=== PATIENT | female | born 1950 | race Caucasian/White ===

== ENCOUNTER 2016-08-25 07:08 | Emergency (ER) | payer MEDICARE ==
--- NOTE | 2016-08-25 08:00 | XRay Report ---
CHEST TWO VIEWS: 08/25/16 07:08:00 CLINICAL: Shortness of breath. COMPARISON: 07/22/14 FINDINGS: Normal heart and pulmonary vasculature. The lungs are hyperexpanded but clear. No tubes or lines. The bones and soft tissues are normal. IMPRESSION: COPD.No CHF or pneumonia.
[2016-08-25 08:08] LABS: Anion Gap 17 mmol/L; BUN/Creatinine Ratio 16.66; Blood Urea Nitrogen 15 mg/dL (7-17); Calcium 8.3 mg/dL (8.4-10.2); Carbon Dioxide 27 mmol/L (22-30); Chloride 97.8 mmol/L (98-107); Glucose 139 mg/dL (65-100); Potassium 3.8 mmol/L (3.6-5.0); Sodium 138 mmol/L (137-145)
[2016-08-25 08:13] LABS: Basophils % (Auto) 0.2 % (0.0-1.8); Eosinophils % (Auto) 0.2 % (0.0-4.3); Hematocrit 36.2 % (30.3-42.9); Hemoglobin 11.5 gm/dl (10.1-14.3); Mean Corpuscular HGB Conc 32 % (30-34); Mean Corpuscular Hemoglobin 27 pg (28-32); Mean Corpuscular Volume 84 fl (79-97); Platelet Count 156 K/mm3 (140-440); Red Blood Count 4.32 M/mm3 (3.65-5.03); Red Cell Distribution Width 13.4 % (13.2-15.2); White Blood Count 12.6 K/mm3 (4.5-11.0)
[2016-08-25] MEDS ORDERED: MOTRIN PO ONE (10:02)
[2016-08-25] MEDS ORDERED: TESSALON PERLES PO ONE (10:02)
[2016-08-25] MEDS ORDERED: LIDOCAINE VISCOUS 2% PO ONE (10:02)
[2016-08-25] MEDS ORDERED: DUONEB 0.5 MG-3 MG/3 ML SOLN IH ONE (10:02)
[2016-08-25] MEDS ORDERED: ZITHROMAX PO ONE (10:02)
[2016-08-25] MEDS ORDERED: MAGNESIUM SULFATE 2GM/50ML 2 GM/50 ML BAG IV ONE (12:02)
[2016-08-25] MEDS ORDERED: NACL 0.9% 1000 ML 1,000 ML IV ONE (12:02)
--- NOTE | 2016-08-25 12:10 | Emergency Department Report ---
HPI - General Chief Complaint: Dyspnea/Respdistress Time Seen by Provider: 08/25/16 10:01 - HPI HPI: The patient is a 65-year-old female who presents for evaluation of cough and dyspnea. The patient has a history of COPD. The patient reports 1 week of worsening dyspnea and a productive cough of yellow sputum. She states that her dyspnea has been constant for the past 3 days, severe for the past one day, exacerbated with coughing or attempting exertion, improved with sitting up. The patient denies fever, chest pain, syncope, hemoptysis, unilateral leg swelling, recent immobilization, history of DVT or PE, recent cancer. ED Past Medical Hx - Past Medical History Previous Medical History?: Yes Hx Hypertension: Yes Hx CVA: Yes Hx COPD: Yes - Surgical History Past Surgical History?: Yes Additional Surgical History: BRAIN ANEURYSM REPAIR - Social History Smoking Status: Never Smoker Substance Use Type: None - Medications Home Medications: Home Medications Medication Instructions Recorded Confirmed Last Taken Type Benzotrophen 25 mg PO BID 03/15/16 08/25/16 Unknown History Hydrochlorothiazide [HCTZ] 25 mg PO QDAY 03/15/16 08/25/16 Unknown History Lisinopril [Zestril] 40 mg PO DAILY 03/15/16 08/25/16 Unknown History Loxapine (Nf) [Loxitane Cap (Nf)] 25 mg PO DAILY 03/15/16 08/25/16 Unknown History ALBUTEROL Inhaler [ProAir HFA 2 puff IH QID PRN #1 inhalation 08/25/16 Unknown Rx Inhaler] Amoxicillin 500 mg PO BID 08/25/16 08/25/16 Unknown History Azithromycin [Zithromax Z-GENOVEVA] 250 mg PO QDAY #6 tablet 08/25/16 Unknown Rx Diclofenac Sodium 75 mg PO BID 08/25/16 08/25/16 Unknown History Pravastatin Sodium [Pravastatin] 20 mg PO QHS 08/25/16 08/25/16 Unknown History Prednisone [predniSONE 10 mg 10 mg PO .TAPER #1 tab.ds.pk 08/25/16 Unknown Rx (6-Day Pack, 21 Tabs)] Promethazine /Codeine 5 ml PO Q6H PRN #120 ml 08/25/16 Unknown Rx [Phenergan/Codeine 6.25-10 mg/5Ml] Rasagiline Mesylate [Azilect] 1 mg PO QDAY 08/25/16 08/25/16 Unknown History amLODIPine [Norvasc] 10 mg PO DAILY 08/25/16 08/25/16 Unknown History ED Review of Systems ROS: Stated complaint: SHORTNESS OF BREATH Other details as noted in HPI Constitutional: denies: fever ENT: denies: throat or neck pain Respiratory: reports cough, shortness of breath Cardiovascular: denies: chest pain Endocrine: denies unexplained weight loss or gain Gastrointestinal: denies: abdominal pain, nausea Genitourinary: denies: dysuria Musculoskeletal: denies: leg swelling Skin: denies: rash Neurological: denies: headache Hematological/Lymphatic: denies: easy bleeding or easy bruising Psych: denies sadness or hopelessness Physical Exam - Physical Exam Vital Signs: Vital Signs 08/25/16 08/25/16 08/25/16 07:15 08:44 09:20 Temperature 98.7 F 98.4 F 98.6 F Pulse Rate 114 H 102 H 103 H Pulse Rate [ Right Lower Lobe] Respiratory 20 20 20 Rate Respiratory Rate [Right Lower Lobe] Blood Pressure 110/69 Blood Pressure 119/49 119/61 [Left] O2 Sat by Pulse 91 94 98 Oximetry 08/25/16 08/25/16 10:18 11:01 Temperature Pulse Rate 100 H Pulse Rate [ 78 Right Lower Lobe] Respiratory 20 Rate Respiratory 18 Rate [Right Lower Lobe] Blood Pressure Blood Pressure 126/61 [Left] O2 Sat by Pulse 98 Oximetry Physical Exam: General: well-nourished, well-developed, no acute distress Head: Normocephalic, atraumatic Eyes: normal sclera ENT: Mucous membranes are pink and moist, bilateral nasal congestion present Neck: trachea midline, neck supple, No neck stiffness, no cervical adenopathy Respiratory: Mildly diminished breath sounds and wheezing present throughout lungs , no costal retractions, no respiratory distress bilaterally Cardio: S1 and S2 present, no murmurs, rubs, gallops, capillary refill is brisk Abdomen: Normoactive bowel sounds, soft abdomen, no rigidity, no guarding or rebound tenderness Chest WALL/Back: Positive tenderness to palpation of the chest wall, no CVA tenderness with percussion Musc: No pitting edema Skin: No rash Neuro: no facial drooping, normal speech Psych: Normal affect ED Course Vital Signs 08/25/16 08/25/16 08/25/16 07:15 08:44 09:20 Temperature 98.7 F 98.4 F 98.6 F Pulse Rate 114 H 102 H 103 H Pulse Rate [ Right Lower Lobe] Respiratory 20 20 20 Rate Respiratory Rate [Right Lower Lobe] Blood Pressure 110/69 Blood Pressure 119/49 119/61 [Left] O2 Sat by Pulse 91 94 98 Oximetry 08/25/16 08/25/16 10:18 11:01 Temperature Pulse Rate 100 H Pulse Rate [ 78 Right Lower Lobe] Respiratory 20 Rate Respiratory 18 Rate [Right Lower Lobe] Blood Pressure Blood Pressure 126/61 [Left] O2 Sat by Pulse 98 Oximetry ED Medical Decision Making - Lab Data Result diagrams: 08/25/16 07:39 08/25/16 07:39 - Medical Decision Making The patient was seen and examined by myself. 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 On initial evaluation, the patient was found to be in no distress. Evaluation orders were placed. The patient is given a breathing treatment, IV magnesium, and IV solumedrol for txt of COPD. the patient is given Tessalon Perles for cough, viscous lidocaine and Motrin for her pain, 1 L normal saline fluid bolus for treatment of dehydration, and a tablet of azithromycin. Chest x-ray negative for focal consolidation, pleural effusions, pulmonary congestion, pneumothorax, or other acute cardio pulmonary disease process. Lab results revealed mildly elevated CBC of 12, and are grossly not concerning. The patient was reevaluated and reported that their symptoms were markedly improved. The patient is stable for discharge with outpatient follow-up. The patient is given follow-up and return instructions. The patient expressed understanding and agreed with the plan. The patient is given a prescription for prednisone. The patient is discharged in stable condition. Critical care attestation.: If time is entered above; I have spent that time in minutes in the direct care of this critically ill patient, excluding procedure time. ED Disposition Clinical Impression: Acute exacerbation of chronic obstructive pulmonary disease, Upper respiratory infection, acute, Acute viral syndrome Disposition: DISCHARGED TO HOME OR SELFCARE Is pt being admited?: No Does the pt Need Aspirin: No Condition: Stable Instructions: Chronic Obstructive Pulmonary Disease (ED), Upper Respiratory Infection (ED) Referrals: BETSEY PARKER MD [Primary Care Provider] - 3-5 Days Time of Disposition: 12:05
[2016-08-25 14:10] VITALS: BP 156/69
== END 2016-08-25 14:10 | disposition home or self-care (01) ==
LOC: ED 07:08
DX: J44.1 Chronic obstructive pulmonary disease with (acute) exacerbation (principal); J06.9 Acute upper respiratory infection, unspecified; B34.9 Viral infection, unspecified; I10 Essential (primary) hypertension; I63.9 Cerebral infarction, unspecified
CPT/HCPCS: 36415; 71020; 80048; 84484; 85025; 93005; 93010; 94640; 96365; 96375; 99285; J2930; J3475; J7030

== ENCOUNTER 2018-09-22 10:04 | Inpatient (IN) | payer MEDICARE ==
[2018-09-22] MEDS ORDERED: SOLU-Medrol IV ONE (10:42)
[2018-09-22] MEDS ORDERED: MAXIPIME/NS 1 GM/100 ML 1 GM/100 ML BAG IV ONE (10:42)
[2018-09-22] MEDS ORDERED: DUONEB *Not for PRN Use IH ONE (10:44)
--- NOTE | 2018-09-22 10:45 | Emergency Department Report ---
ED Shortness of Breath HPI - General Chief Complaint: Dyspnea/Respdistress Stated Complaint: DIFFICULTY BREATHING Time Seen by Provider: 09/22/18 10:41 Source: EMS Mode of arrival: Stretcher Limitations: No Limitations - History of Present Illness Initial Comments: Patient is a 68-year-old female that presents emergency room with complaints of difficulty breathing and shortness of breath and chest pain. Patient states the chest pain is substernal and nonradiating. Patient states the pain is a 4 out of 10. Patient states the pain is intermittent. Patient states the pain is worse with exertion and better with rest. Patient states shortness breath is better with rest and worse with exertion. Patient states she has a history of COPD and has home O2 as well as multiple nebulizers. Symptoms going on for 3 days. Patient's symptoms are worsening. MD Complaint: shortness of breath, cough, chest pain -: Sudden Severity: mild, moderate Pain Scale: 4 Quality: aching Consistency: constant Improves With: oxygen, rest, bronchodilators, upright position, medication Worsens With: lying flat, exertion, coughing Known History Of: COPD Context: recent URI Associated Symptoms: chest pain, cough, sputum production, orhopnia Treatments Prior to Arrival: oxygen, bronchodilator - Related Data Home Oxygen Therapy: Yes Home Oxygen Amount: 2 Liters Home Medications Medication Instructions Recorded Confirmed Last Taken Benzotrophen 25 mg PO BID 03/15/16 08/25/16 Unknown Lisinopril [Zestril] 40 mg PO DAILY 03/15/16 09/22/18 1 Day Ago ~09/21/18 Loxapine (Nf) [Loxitane Cap (Nf)] 25 mg PO DAILY 03/15/16 08/25/16 Unknown hydroCHLOROthiazide [HCTZ] 25 mg PO QDAY 03/15/16 09/22/18 1 Day Ago ~09/21/18 Amoxicillin 500 mg PO BID 08/25/16 08/25/16 Unknown Diclofenac Sodium 75 mg PO BID 08/25/16 08/25/16 Unknown Pravastatin Sodium [Pravastatin] 20 mg PO QHS 08/25/16 09/22/18 1 Day Ago ~09/21/18 Rasagiline Mesylate [Azilect] 1 mg PO QDAY 08/25/16 08/25/16 Unknown amLODIPine [Norvasc] 10 mg PO DAILY 08/25/16 09/22/18 1 Day Ago ~09/21/18 Rasagiline Mesylate [Azilect] 1 mg PO QDAY 09/22/18 09/22/18 1 Day Ago ~09/21/18 traZODone [Desyrel] 09/22/18 1 Day Ago ~09/21/18 traZODone [Desyrel] 09/22/18 1 Day Ago ~09/21/18 100 Previous Rx's Medication Instructions Recorded Last Taken Type ALBUTEROL Inhaler (OR & NICU) 2 puff IH QID PRN #1 inhalation 08/25/16 Unknown Rx [ProAir HFA Inhaler] Azithromycin [Zithromax Z-GENOVEVA] 250 mg PO QDAY #6 tablet 08/25/16 Unknown Rx Prednisone [predniSONE 10 mg 10 mg PO .TAPER #1 tab.ds.pk 08/25/16 Unknown Rx (6-Day Pack, 21 Tabs)] Promethazine /Codeine 5 ml PO Q6H PRN #120 ml 08/25/16 Unknown Rx [Phenergan/Codeine 6.25-10 mg/5Ml] Allergies Allergy/AdvReac Type Severity Reaction Status Date / Time No Known Allergies Allergy Verified 03/15/16 11:27 ED Review of Systems ROS: Stated complaint: DIFFICULTY BREATHING Other details as noted in HPI Constitutional: denies: chills, fever Eyes: denies: eye pain, eye discharge, vision change ENT: denies: ear pain, throat pain Respiratory: cough, shortness of breath, SOB with exertion, SOB at rest, wheezing Cardiovascular: chest pain. denies: palpitations Endocrine: no symptoms reported Gastrointestinal: denies: abdominal pain, nausea, diarrhea Genitourinary: denies: urgency, dysuria, discharge Musculoskeletal: denies: back pain, joint swelling, arthralgia Skin: denies: rash, lesions Neurological: denies: headache, weakness, paresthesias Psychiatric: denies: anxiety, depression Hematological/Lymphatic: denies: easy bleeding, easy bruising ED Past Medical Hx - Past Medical History Previous Medical History?: Yes Hx Hypertension: Yes Hx CVA: Yes Hx COPD: Yes - Surgical History Past Surgical History?: Yes Additional Surgical History: BRAIN ANEURYSM REPAIR - Family History Family history: no significant - Social History Smoking Status: Former Smoker Substance Use Type: None - Medications Home Medications: Home Medications Medication Instructions Recorded Confirmed Last Taken Type Benzotrophen 25 mg PO BID 03/15/16 08/25/16 Unknown History Lisinopril [Zestril] 40 mg PO DAILY 03/15/16 09/22/18 1 Day Ago History ~09/21/18 Loxapine (Nf) [Loxitane Cap (Nf)] 25 mg PO DAILY 03/15/16 08/25/16 Unknown History hydroCHLOROthiazide [HCTZ] 25 mg PO QDAY 03/15/16 09/22/18 1 Day Ago History ~09/21/18 ALBUTEROL Inhaler (OR & NICU) 2 puff IH QID PRN #1 inhalation 08/25/16 Unknown Rx [ProAir HFA Inhaler] Amoxicillin 500 mg PO BID 08/25/16 08/25/16 Unknown History Azithromycin [Zithromax Z-GENOVEVA] 250 mg PO QDAY #6 tablet 08/25/16 Unknown Rx Diclofenac Sodium 75 mg PO BID 08/25/16 08/25/16 Unknown History Pravastatin Sodium [Pravastatin] 20 mg PO QHS 08/25/16 09/22/18 1 Day Ago History ~09/21/18 Prednisone [predniSONE 10 mg 10 mg PO .TAPER #1 tab.ds.pk 08/25/16 Unknown Rx (6-Day Pack, 21 Tabs)] Promethazine /Codeine 5 ml PO Q6H PRN #120 ml 08/25/16 Unknown Rx [Phenergan/Codeine 6.25-10 mg/5Ml] Rasagiline Mesylate [Azilect] 1 mg PO QDAY 08/25/16 08/25/16 Unknown History amLODIPine [Norvasc] 10 mg PO DAILY 08/25/16 09/22/18 1 Day Ago History ~09/21/18 Rasagiline Mesylate [Azilect] 1 mg PO QDAY 09/22/18 09/22/18 1 Day Ago History ~09/21/18 traZODone [Desyrel] 09/22/18 1 Day Ago History ~09/21/18 traZODone [Desyrel] 09/22/18 1 Day Ago History ~09/21/18 100 ED Physical Exam - General Limitations: No Limitations ( ) General appearance: alert, in no apparent distress - Head Head exam: Present: atraumatic, normocephalic - Eye Eye exam: Present: normal appearance - ENT ENT exam: Present: mucous membranes dry - Neck Neck exam: Present: normal inspection - Respiratory Respiratory exam: Present: respiratory distress, wheezes, decreased breath sounds, prolonged expiratory - Cardiovascular Cardiovascular Exam: Present: regular rate, normal rhythm. Absent: systolic m urmur, diastolic murmur, rubs, gallop - GI/Abdominal GI/Abdominal exam: Present: soft, normal bowel sounds - Rectal Rectal exam: Present: deferred - Extremities Exam Extremities exam: Present: normal inspection - Back Exam Back exam: Present: normal inspection - Neurological Exam Neurological exam: Present: alert, oriented X3 - Psychiatric Psychiatric exam: Present: normal affect, normal mood - Skin Skin exam: Present: warm, dry, intact, normal color. Absent: rash ED Course Vital Signs 09/22/18 09/22/18 09/22/18 10:22 10:30 10:31 Temperature 98.3 F Pulse Rate 99 H 76 81 Respiratory 30 H 26 H 18 Rate Blood Pressure 101/46 Blood Pressure 103/40 [Left] O2 Sat by Pulse 86 86 Oximetry 09/22/18 09/22/18 09/22/18 10:45 11:01 11:15 Temperature Pulse Rate 82 74 73 Respiratory 20 18 22 Rate Blood Pressure 108/42 103/36 103/36 Blood Pressure [Left] O2 Sat by Pulse 89 86 94 Oximetry 09/22/18 09/22/18 09/22/18 11:30 11:45 12:01 Temperature Pulse Rate 80 70 69 Respiratory 21 22 19 Rate Blood Pressure 106/38 115/40 112/75 Blood Pressure [Left] O2 Sat by Pulse 94 91 85 Oximetry 09/22/18 09/22/18 09/22/18 12:15 12:30 12:45 Temperature Pulse Rate 68 78 86 Respiratory 18 21 24 Rate Blood Pressure 123/40 103/74 103/74 Blood Pressure [Left] O2 Sat by Pulse 91 85 83 L Oximetry 09/22/18 09/22/18 09/22/18 13:00 13:15 13:30 Temperature Pulse Rate Respiratory 22 22 26 H Rate Blood Pressure 126/64 116/74 123/52 Blood Pressure [Left] O2 Sat by Pulse 85 92 95 Oximetry 09/22/18 09/22/18 09/22/18 13:45 14:00 14:15 Temperature Pulse Rate Respiratory 24 11 L 26 H Rate Blood Pressure 123/52 96/76 96/76 Blood Pressure [Left] O2 Sat by Pulse 92 92 96 Oximetry 09/22/18 09/22/18 09/22/18 14:30 14:45 15:00 Temperature Pulse Rate Respiratory 17 14 21 Rate Blood Pressure 163/71 132/51 134/47 Blood Pressure [Left] O2 Sat by Pulse 92 92 97 Oximetry 09/22/18 15:04 Temperature Pulse Rate Respiratory Rate Blood Pressure Blood Pressure [Left] O2 Sat by Pulse 94 Oximetry - Reevaluation(s) Reevaluation #1: Initial evaluation done and patient will be given steroids, antibiotics and a breathing treatment. 09/22/18 11:07 Lungs are clear in this time. Patient will be admitted to the hospitalist service for further evaluation treatment. 09/22/18 12:08 Discussed all results with patient. Patient will be admitted to the hospitalist service. Patient agrees with plan of care and admission. Family at bedside 09/22/18 13:08 - Consultations Consultation #1: hospitalist consulted for admission. Hospitalist to admit patient. Hospitalist to assume care of patient. Bridge orders placed. 09/22/18 13:27 ED Medical Decision Making - Lab Data Result diagrams: 09/22/18 10:50 09/22/18 10:50 - EKG Data -: EKG Interpreted by Dc EKG shows normal: sinus rhythm, axis, intervals, QRS complexes, ST-T waves Rate: normal - Radiology Data Radiology results: report reviewed, image reviewed PORTABLE CHEST INDICATION: Dyspnea. COMPARISON: 08/25/2016 FINDINGS: Portable, frontal chest radiograph demonstrates stable cardiomediastinal silhouette, aortic knob calcifications and clear, well-expanded lungs. EKG leads. Intact bones. CONCLUSION: No acute disease, stable. - Medical Decision Making Patient is a 68-year-old female that has some urgency with complaints of chest pain, shortness of breath. Patient found to have a COPD exacerbation. Patient had sounds on initial evaluation. Patient brought in by EMS. Patient given albuterol, DuoNeb, Solu-Medrol, and antibiotics. Patient was admitted to the hospitalist service for further evaluation treatment. EKG negative. Cardiac enzymes negative. Labs unremarkable. Patient is on home O2. patient initially hypoxic in the ER - Differential Diagnosis hypoxic. Shortness of breath. COPD. Chest pain. ACS Critical Care Time: Yes Critical care attestation.: If time is entered above; I have spent that time in minutes in the direct care of this critically ill patient, excluding procedure time. Critical Care Time: 45 minutes ED Disposition Clinical Impression: SOB (shortness of breath), COPD exacerbation, Hypoxia Chest pain Qualifiers: Chest pain type: unspecified Qualified Code(s): R07.9 - Chest pain, unspecified Disposition: [id number] OP ADMIT IP TO THIS HOSP Is pt being admited?: Yes Does the pt Need Aspirin: No Condition: Critical Time of Disposition: 13:25
--- NOTE | 2018-09-22 11:10 | XRay Report ---
PORTABLE CHEST INDICATION: Dyspnea. COMPARISON: 08/25/2016 FINDINGS: Portable, frontal chest radiograph demonstrates stable cardiomediastinal silhouette, aortic knob calcifications and clear, well-expanded lungs. EKG leads. Intact bones. CONCLUSION: No acute disease, stable. Thank you for the opportunity to participate in this patient's care.
[2018-09-22 11:18] LABS: Basophils % (Auto) 0.4 % (0.0-1.8); Eosinophils % (Auto) 0.6 % (0.0-4.3); Hematocrit 36.4 % (30.3-42.9); Hemoglobin 11.6 gm/dl (10.1-14.3); Lymphocytes # (Auto) 0.9 K/mm3 (1.2-5.4); Mean Corpuscular HGB Conc 32 % (30-34); Mean Corpuscular Volume 90 fl (79-97); Monocytes # (Auto) 0.3 K/mm3 (0.0-0.8); Monocytes % (Auto) 5.3 % (0.0-7.3); Platelet Count 173 K/mm3 (140-440); Red Blood Count 4.06 M/mm3 (3.65-5.03); Red Cell Distribution Width 14.3 % (13.2-15.2)
[2018-09-22 11:27] LABS: Creatine Kinase MB 1.1 ng/mL (0.0-4.0)
[2018-09-22 11:29] LABS: Alanine Aminotransferase 34 units/L (7-56); BUN/Creatinine Ratio 32; Blood Urea Nitrogen 29 mg/dL (7-17); Calcium 9.5 mg/dL (8.4-10.2); Hemolysis Index 5
[2018-09-22] MEDS ORDERED: ASPIRIN PO ONE (13:06)
[2018-09-22] MEDS ORDERED: ASPIRIN ONE (15:14)
[2018-09-22] MEDS ORDERED: IBUPROFEN PO PRN (17:07)
[2018-09-22] MEDS ORDERED: TYLENOL PO PRN (17:07)
[2018-09-22] MEDS ORDERED: DILAUDID IV PRN (17:07)
--- NOTE | 2018-09-22 17:07 | History and Physical Report ---
History of Present Illness Date of examination: 09/22/18 Date of admission: 09/22/18 13:57 Chief complaint: Chest pain and SOB for 3 days History of present illness: 68-year-old martiniquais speaking female presents to the emergency room with complaints of difficulty breathing and shortness of breath and chest pain. Patient states the chest pain is substernal and nonradiating. Patient states the pain is a 4 out of 10. Patient states the pain is intermittent. Patient states the pain is worse with exertion and better with rest. Patient states shortness breath is better with rest and worse with exertion. Patient states she has a history of COPD and has home O2 as well as multiple nebulizers. Cough productive of mucoid sputum.No fever or chills. Symptoms going on for 3 days. Patient's symptoms are worsening. Past Medical History Previous Medical History?: Yes Hx Hypertension: Yes Hx CVA: Yes Hx COPD: Yes Surgical History Past Surgical History?: Yes Additional Surgical History: BRAIN ANEURYSM REPAIR Family History Family history: no significant Social History Smoking Status: Former Smoker Substance Use Type: None Medications Home Medications: Home Medications Medication Instructions Recorded Confirmed Last Taken Type Benzotrophen 25 mg PO BID 03/15/16 08/25/16 Unknown History Lisinopril [Zestril] 40 mg PO DAILY 03/15/16 09/22/18 1 Day Ago History ~09/21/18 Loxapine (Nf) [Loxitane Cap (Nf)] 25 mg PO DAILY 03/15/16 08/25/16 Unknown History hydroCHLOROthiazide [HCTZ] 25 mg PO QDAY 03/15/16 09/22/18 1 Day Ago History ~09/21/18 ALBUTEROL Inhaler (OR & NICU) 2 puff IH QID PRN #1 inhalation 08/25/16 Unknown Rx [ProAir HFA Inhaler] Amoxicillin 500 mg PO BID 08/25/16 08/25/16 Unknown History Azithromycin [Zithromax Z-GENOVEVA] 250 mg PO QDAY #6 tablet 08/25/16 Unknown Rx Diclofenac Sodium 75 mg PO BID 08/25/16 08/25/16 Unknown History Pravastatin Sodium [Pravastatin] 20 mg PO QHS 08/25/16 09/22/18 1 Day Ago History ~09/21/18 Prednisone [predniSONE 10 mg 10 mg PO .TAPER #1 tab.ds.pk 08/25/16 Unknown Rx (6-Day Pack, 21 Tabs)] Promethazine /Codeine 5 ml PO Q6H PRN #120 ml 08/25/16 Unknown Rx [Phenergan/Codeine 6.25-10 mg/5Ml] Rasagiline Mesylate [Azilect] 1 mg PO QDAY 08/25/16 08/25/16 Unknown History amLODIPine [Norvasc] 10 mg PO DAILY 08/25/16 09/22/18 1 Day Ago History ~09/21/18 Rasagiline Mesylate [Azilect] 1 mg PO QDAY 09/22/18 09/22/18 1 Day Ago History ~09/21/18 traZODone [Desyrel] 09/22/18 1 Day Ago History ~09/21/18 traZODone [Desyrel] 09/22/18 1 Day Ago History ~09/21/18 100 Review of Systems ROS: Stated complaint: DIFFICULTY BREATHING Other details as noted in HPI Constitutional: denies: chills, fever Eyes: denies: eye pain, eye discharge, vision change ENT: denies: ear pain, throat pain Respiratory: cough, shortness of breath, SOB with exertion, SOB at rest, wheezing Cardiovascular: chest pain. denies: palpitations Endocrine: no symptoms reported Gastrointestinal: denies: abdominal pain, nausea, diarrhea Genitourinary: denies: urgency, dysuria, discharge Musculoskeletal: denies: back pain, joint swelling, arthralgia Skin: denies: rash, lesions Neurological: denies: headache, weakness, paresthesias Psychiatric: denies: anxiety, depression Hematological/Lymphatic: denies: easy bleeding, easy bruising Medications and Allergies Allergies Allergy/AdvReac Type Severity Reaction Status Date / Time No Known Allergies Allergy Verified 03/15/16 11:27 Home Medications Medication Instructions Recorded Confirmed Last Taken Type Benzotrophen 25 mg PO BID 03/15/16 08/25/16 Unknown History Lisinopril [Zestril] 40 mg PO DAILY 03/15/16 09/22/18 1 Day Ago History ~09/21/18 Loxapine (Nf) [Loxitane Cap (Nf)] 25 mg PO DAILY 03/15/16 08/25/16 Unknown History hydroCHLOROthiazide [HCTZ] 25 mg PO QDAY 03/15/16 09/22/18 1 Day Ago History ~09/21/18 ALBUTEROL Inhaler (OR & NICU) 2 puff IH QID PRN #1 inhalation 08/25/16 Unknown Rx [ProAir HFA Inhaler] Amoxicillin 500 mg PO BID 08/25/16 08/25/16 Unknown History Azithromycin [Zithromax Z-GENOVEVA] 250 mg PO QDAY #6 tablet 08/25/16 Unknown Rx Diclofenac Sodium 75 mg PO BID 08/25/16 08/25/16 Unknown History Pravastatin Sodium [Pravastatin] 20 mg PO QHS 08/25/16 09/22/18 1 Day Ago History ~09/21/18 Prednisone [predniSONE 10 mg 10 mg PO .TAPER #1 tab.ds.pk 08/25/16 Unknown Rx (6-Day Pack, 21 Tabs)] Promethazine /Codeine 5 ml PO Q6H PRN #120 ml 08/25/16 Unknown Rx [Phenergan/Codeine 6.25-10 mg/5Ml] Rasagiline Mesylate [Azilect] 1 mg PO QDAY 08/25/16 08/25/16 Unknown History amLODIPine [Norvasc] 10 mg PO DAILY 08/25/16 09/22/18 1 Day Ago History ~09/21/18 Rasagiline Mesylate [Azilect] 1 mg PO QDAY 09/22/18 09/22/18 1 Day Ago History ~09/21/18 traZODone [Desyrel] 09/22/18 1 Day Ago History ~09/21/18 traZODone [Desyrel] 09/22/18 1 Day Ago History ~09/21/18 100 Active Meds: Active Medications Pneumococcal Polyvalent Vaccine (Pneumovax 23) 0.5 ml IM .ONCE ONE Stop: 09/23/18 12:01 Exam - Constitutional Vitals: Temp Pulse Resp BP Pulse Ox 98.3 F 86 21 134/47 94 09/22/18 10:31 09/22/18 12:45 09/22/18 15:00 09/22/18 15:00 09/22/18 15:04 General appearance: Present: mild distress, well-nourished - EENT Eyes: Present: PERRL ENT: hearing intact, clear oral mucosa - Neck Neck: Present: supple, normal ROM - Respiratory Respiratory effort: normal Respiratory: bilateral: diminished, rhonchi, wheezing - Cardiovascular Heart rate: 78 Rhythm: regular Heart Sounds: Present: S1 & S2. Absent: rub, click - Extremities Extremities: no ischemia, pulses intact, pulses symmetrical, No edema Peripheral Pulses: within normal limits - Abdominal General gastrointestinal: Present: soft, non-tender, non-distended, normal bowel sounds Female genitourinary: Present: normal - Rectal Rectal Exam: deferred - Integumentary Integumentary: Present: clear, warm, dry - Musculoskeletal Musculoskeletal: gait normal, strength equal bilaterally - Psychiatric Psychiatric: appropriate mood/affect, intact judgment & insight - Neurologic Neurologic: CNII-XII intact, moves all extremities - Allied Health Allied health notes reviewed: nursing, case management Results - Labs CBC & Chem 7: 09/22/18 10:50 09/22/18 10:50 Labs: Laboratory Last Values WBC 6.6 K/mm3 (4.5-11.0) 09/22/18 10:50 RBC 4.06 M/mm3 (3.65-5.03) 09/22/18 10:50 Hgb 11.6 gm/dl (10.1-14.3) 09/22/18 10:50 Hct 36.4 % (30.3-42.9) 09/22/18 10:50 MCV 90 fl (79-97) 09/22/18 10:50 MCH 29 pg (28-32) 09/22/18 10:50 MCHC 32 % (30-34) 09/22/18 10:50 RDW 14.3 % (13.2-15.2) 09/22/18 10:50 Plt Count 173 K/mm3 (140-440) 09/22/18 10:50 Lymph % (Auto) 13.0 % (13.4-35.0) L 09/22/18 10:50 [place] % (Auto) 5.3 % (0.0-7.3) 09/22/18 10:50 Eos % (Auto) 0.6 % (0.0-4.3) 09/22/18 10:50 Baso % (Auto) 0.4 % (0.0-1.8) 09/22/18 10:50 Lymph # 0.9 K/mm3 (1.2-5.4) L 09/22/18 10:50 [place] # 0.3 K/mm3 (0.0-0.8) 09/22/18 10:50 Eos # 0.0 K/mm3 (0.0-0.4) 09/22/18 10:50 Baso # 0.0 K/mm3 (0.0-0.1) 09/22/18 10:50 Seg Neutrophils % 80.7 % (40.0-70.0) H 09/22/18 10:50 Seg Neutrophils # 5.3 K/mm3 (1.8-7.7) 09/22/18 10:50 Sodium 143 mmol/L (137-145) 09/22/18 10:50 Potassium 4.2 mmol/L (3.6-5.0) 09/22/18 10:50 Chloride 98.1 mmol/L (98-107) 09/22/18 10:50 Carbon Dioxide 35 mmol/L (22-30) H 09/22/18 10:50 Anion Gap 14 mmol/L 09/22/18 10:50 BUN 29 mg/dL (7-17) H 09/22/18 10:50 Creatinine 0.9 mg/dL (0.7-1.2) 09/22/18 10:50 Estimated GFR > 60 ml/min 09/22/18 10:50 BUN/Creatinine Ratio 32 % 09/22/18 10:50 Glucose 111 mg/dL (65-100) H 09/22/18 10:50 Lactic Acid 1.40 mmol/L (0.7-2.0) 09/22/18 10:50 Calcium 9.5 mg/dL (8.4-10.2) 09/22/18 10:50 Total Bilirubin < 0.20 mg/dL (0.1-1.2) 09/22/18 10:50 AST 29 units/L (5-40) 09/22/18 10:50 ALT 34 units/L (7-56) 09/22/18 10:50 Alkaline Phosphatase 69 units/L (35-129) 09/22/18 10:50 Total Creatine Kinase 28 units/L (30-135) L 09/22/18 10:50 CK-MB (CK-2) 1.1 ng/mL (0.0-4.0) 09/22/18 10:50 CK-MB (CK-2) Rel Index 3.9 (0-4) 09/22/18 10:50 Troponin T < 0.010 ng/mL (0.00-0.029) 09/22/18 10:50 Total Protein 6.9 g/dL (6.3-8.2) 09/22/18 10:50 Albumin 4.0 g/dL (3.9-5) 09/22/18 10:50 Albumin/Globulin Ratio 1.4 % 09/22/18 10:50 - Imaging and Cardiology EKG: report reviewed (Incomplete RBBB LVH HR 72/min) Chest x-ray: report reviewed (NAF) Assessment and Plan Advance Directives: Yes (Full code) VTE prophylaxis?: Chemical Plan of care discussed with patient/family: Yes - Patient Problems (1) Acute respiratory failure with hypoxia Current Visit: Yes Status: Acute Plan to address problem: Neb Tx,IV solumedrol and IV Abx and O2 Bipap if necessary Intubation if neccessary (2) Chest pain Current Visit: Yes Status: Acute Qualifiers: Chest pain type: unspecified Qualified Code(s): R07.9 - Chest pain, unspecified Plan to address problem: Chest pain r/o PR Lexiscan in am Serial troponins (3) COPD exacerbation Current Visit: Yes Status: Acute Plan to address problem: Duonebs IV Solumedrol and IV Levaquin for now Bipap if necessary (4) HTN (hypertension) Current Visit: Yes Status: Chronic Qualifiers: Hypertension type: essential hypertension Qualified Code(s): I10 - Essential (primary) hypertension Plan to address problem: Cont antihypertensives (5) HLD (hyperlipidemia) Current Visit: Yes Status: Chronic Qualifiers: Hyperlipidemia type: mixed hyperlipidemia Qualified Code(s): E78.2 - Mixed hyperlipidemia Plan to address problem: Cont Statins (6) DVT prophylaxis Current Visit: Yes Status: Acute Plan to address problem: Lovenox and GI prophylaxis
[2018-09-22] MEDS ORDERED: PHENERGAN/CODEINE 6.25-10 MG/5ML PO PRN (17:09)
[2018-09-22] MEDS ORDERED: PROAIR IH PRN (17:09)
[2018-09-22] MEDS ORDERED: RASAGILINE MESYLATE 1 MG PO SCH (17:15)
[2018-09-22] MEDS ORDERED: LOXAPINE 25 MG PO SCH (17:15)
[2018-09-22] MEDS ORDERED: NORVASC PO SCH (18:00)
[2018-09-22] MEDS ORDERED: PERCOCET 5/325 PO PRN (18:24)
[2018-09-22] MEDS ORDERED: PROVENTIL IH PRN ×2 (18:28→22:01)
[2018-09-22] MEDS ORDERED: ZOFRAN IV PRN (18:32)
[2018-09-22] MEDS: NACL 0.9% 1000 ML 1,000 ML IV SCH (18:38)
[2018-09-22] MEDS: SODIUM CHLORIDE FLUSH SYRINGE 10 ML IV PRN (18:42)
[2018-09-22] MEDS: PEPCID PO SCH (21:45)
[2018-09-22] MEDS: DESYREL PO SCH (21:45)
[2018-09-22] MEDS: SODIUM CHLORIDE FLUSH SYRINGE 10 ML IV SCH (21:50)
[2018-09-22] MEDS: ZESTRIL PO SCH (21:50)
[2018-09-22] MEDS: NORVASC PO SCH (21:52)
[2018-09-22] MEDS: HCTZ PO SCH (21:52)
[2018-09-22] MEDS ORDERED: SOLU-Medrol IV SCH (23:00)
[2018-09-23] MEDS: SOLU-Medrol IV SCH ×4 (00:40→22:11)
[2018-09-23] MEDS: SODIUM CHLORIDE FLUSH SYRINGE 10 ML IV PRN (00:41)
[2018-09-23] MEDS: ROBITUSSIN PO PRN (02:00)
[2018-09-23 05:21] LABS: Hematocrit 34.4 % (30.3-42.9); Mean Corpuscular HGB Conc 32 % (30-34); Mean Corpuscular Volume 90 fl (79-97); Platelet Count 174 K/mm3 (140-440); Red Blood Count 3.83 M/mm3 (3.65-5.03)
[2018-09-23 06:02] LABS: Basophils % (Manual) 0 % (0.0-1.8); Eosinophils % (Manual) 0 % (0.0-4.3); Total Cells Counted 100
[2018-09-23 06:03] LABS: Platelet Estimate Consistent w Auto; RBC Morphology Normal
[2018-09-23 06:25] LABS: Alanine Aminotransferase 32 units/L (7-56); Albumin 3.7 g/dL (3.9-5); BUN/Creatinine Ratio 33; Blood Urea Nitrogen 20 mg/dL (7-17); Calcium 9.4 mg/dL (8.4-10.2); Hemolysis Index 2
[2018-09-23] MEDS ORDERED: DUONEB *Not for PRN Use IH SCH (08:00)
[2018-09-23] MEDS ORDERED: LEXISCAN IV ONE ×2 (08:08→09:00)
[2018-09-23] MEDS: NORVASC PO SCH (10:00)
[2018-09-23] MEDS: SODIUM CHLORIDE FLUSH SYRINGE 10 ML IV SCH ×2 (10:00→22:15)
[2018-09-23] MEDS: HCTZ PO SCH (10:00)
[2018-09-23] MEDS: ZESTRIL PO SCH (10:00)
[2018-09-23] MEDS ORDERED: LEVAQUIN 750MG/150ML 750 MG/150 ML BAG IV SCH (10:00)
[2018-09-23] MEDS ORDERED: PNEUMOVAX 23 IM ONE (12:00)
--- NOTE | 2018-09-23 13:04 | Progress Note ---
Assessment and Plan / Acute respiratory failure with hypoxia cont Neb Tx, IV solumedrol and IV Abx and O2 Bipap if necessary / Chest pain negative trop, denies any chest pain today Lexiscan on Tuesday Serial troponins / COPD exacerbation: Duonebs IV Solumedrol and IV Levaquin for now Bipap if necessary / HTN (hypertension) Cont antihypertensives /HLD (hyperlipidemia) Cont Statins /Moderate to severe GALI - BMI only 14 - will get albumin, prealbumin level - consult dietary / DVT prophylaxis Lovenox and GI prophylaxis brief history: 68-year-old guyanese female can speak tamazight with a history of COPD and has home O2 as well as multiple nebulizers presents to the emergency room with complaints of difficulty breathing and shortness of breath and chest pain for 3 days. Subjective Date of service: 09/23/18 Interval history: Pt seen and examined could not get stress test today c/o SOB with minimal exertion Objective - Constitutional Vitals: Vital Signs - 12hr 09/23/18 09/23/18 09/23/18 01:27 01:40 02:42 Temperature 98.2 F Pulse Rate 89 Pulse Rate [ 87 89 Anterior Bilateral Throughout] Respiratory 20 Rate Respiratory 22 18 Rate [Anterior Bilateral Throughout] Blood Pressure 97/50 O2 Sat by Pulse 90 Oximetry 09/23/18 09/23/18 09/23/18 07:35 09:50 09:56 Temperature 97.9 F Pulse Rate 106 H Pulse Rate [ 97 H 104 H Anterior Bilateral Throughout] Respiratory 22 Rate Respiratory 18 18 Rate [Anterior Bilateral Throughout] Blood Pressure 126/52 O2 Sat by Pulse 90 Oximetry 09/23/18 09/23/18 09:58 11:44 Temperature Pulse Rate Pulse Rate [ Anterior Bilateral Throughout] Respiratory Rate Respiratory Rate [Anterior Bilateral Throughout] Blood Pressure O2 Sat by Pulse 96 96 Oximetry General appearance: Present: no acute distress, cachectic - EENT Eyes: PERRL, EOM intact ENT: hearing intact, clear oral mucosa Ears: bilateral: normal - Neck Neck: supple, normal ROM - Respiratory Respiratory effort: normal Respiratory: bilateral: diminished - Cardiovascular Rhythm: regular Heart Sounds: Present: S1 & S2. Absent: gallop, rub Extremities: pulses intact, No edema, normal color, Full ROM - Gastrointestinal General gastrointestinal: Present: soft, non-tender, non-distended, normal bowel sounds - Integumentary Integumentary: clear, warm, dry - Musculoskeletal Musculoskeletal: 1, strength equal bilaterally - Neurologic Neurologic: moves all extremities - Psychiatric Psychiatric: memory intact, appropriate mood/affect, intact judgment & insight - Labs CBC & Chem 7: 09/23/18 04:46 09/23/18 04:46 Labs: Abnormal lab results 09/23/18 09/23/18 Range/Units 04:46 04:46 Seg Neuts % (Manual) 95.0 H (40.0-70.0) % Lymphocytes % (Manual) 4.0 L (13.4-35.0) % Lymphocytes # (Manual) 0.2 L (1.2-5.4) K/mm3 Sodium 148 H (137-145) mmol/L BUN 20 H (7-17) mg/dL Creatinine 0.6 L (0.7-1.2) mg/dL Glucose 174 H (65-100) mg/dL Albumin 3.7 L (3.9-5) g/dL
[2018-09-23] MEDS: DUONEB *Not for PRN Use IH SCH ×2 (14:00→20:21)
[2018-09-23] MEDS: LEVAQUIN 750MG/150ML 750 MG/150 ML BAG IV SCH (17:15)
[2018-09-23] MEDS: PEPCID PO SCH ×2 (17:16→22:11)
[2018-09-23] MEDS ORDERED: NON-FORMULARY (Pravastatin Sodium [Pravastatin] 20 MG) PO SCH (22:00)
[2018-09-23] MEDS: DESYREL PO SCH (22:11)
[2018-09-23] MEDS: PRAVACHOL PO SCH (22:11)
[2018-09-23] MEDS: LOVENOX SUB-Q SCH (22:12)
[2018-09-24] MEDS: ROBITUSSIN PO PRN ×2 (02:29→22:48)
[2018-09-24] MEDS: NACL 0.9% 1000 ML 1,000 ML IV SCH (06:22)
[2018-09-24] MEDS: SOLU-Medrol IV SCH ×3 (06:26→22:39)
[2018-09-24] MEDS: DUONEB *Not for PRN Use IH SCH ×3 (09:19→20:59)
[2018-09-24] MEDS: NORVASC PO SCH (09:32)
[2018-09-24] MEDS: ZESTRIL PO SCH (09:32)
[2018-09-24] MEDS: LEVAQUIN 750MG/150ML 750 MG/150 ML BAG IV SCH (09:32)
[2018-09-24] MEDS: HCTZ PO SCH (09:32)
[2018-09-24] MEDS: SODIUM CHLORIDE FLUSH SYRINGE 10 ML IV SCH ×2 (09:33→22:39)
--- NOTE | 2018-09-24 11:57 | Progress Note ---
Assessment and Plan / Acute respiratory failure with hypoxia cont Neb Tx, IV solumedrol and IV Abx and O2 Bipap if necessary / Chest pain negative trop, denies any chest pain today Lexiscan on Tuesday Serial troponins / COPD exacerbation: Duonebs IV Solumedrol and IV Levaquin for now Bipap if necessary / HTN (hypertension) Cont antihypertensives /HLD (hyperlipidemia) Cont Statins /Moderate to severe GALI - BMI only 14 - will get albumin, prealbumin level - consult dietary / DVT prophylaxis Lovenox and GI prophylaxis brief history: 68-year-old cameroonian female can speak persian with a history of COPD and has home O2 as well as multiple nebulizers presents to the emergency room with complaints of difficulty breathing and shortness of breath and chest pain for 3 days. Physical exam: General appearance: Present: no acute distress, cachectic - EENT Eyes: PERRL, EOM intact ENT: hearing intact, clear oral mucosa Ears: bilateral: normal - Neck Neck: supple, normal ROM - Respiratory Respiratory effort: normal Respiratory: bilateral: diminished - Cardiovascular Rhythm: regular Heart Sounds: Present: S1 & S2. Absent: gallop, rub Extremities: pulses intact, No edema, normal color, Full ROM - Gastrointestinal General gastrointestinal: Present: soft, non-tender, non-distended, normal bowel sounds - Integumentary Integumentary: clear, warm, dry - Musculoskeletal Musculoskeletal: 1, strength equal bilaterally - Neurologic Neurologic: moves all extremities - Psychiatric Psychiatric: memory intact, appropriate mood/affect, intact judgment & insight Subjective Date of service: 09/24/18 Interval history: Pt seen and examined planned for stress test Tuesday Improved SOB but worse with exertion Objective - Constitutional Vitals: Vital Signs - 12hr 09/24/18 09/24/18 09/24/18 02:23 03:40 09:12 Temperature 98.1 F 98.8 F Pulse Rate 113 H 114 H 108 H Pulse Rate [ Anterior Bilateral Throughout] Respiratory 20 22 Rate Respiratory Rate [Anterior Bilateral Throughout] Blood Pressure 120/88 Blood Pressure 139/74 [Right] O2 Sat by Pulse 93 92 Oximetry 09/24/18 09/24/18 09/24/18 09:32 10:00 10:10 Temperature Pulse Rate 108 H Pulse Rate [ 108 H 107 H Anterior Bilateral Throughout] Respiratory Rate Respiratory 18 18 Rate [Anterior Bilateral Throughout] Blood Pressure 139/74 Blood Pressure [Right] O2 Sat by Pulse 95 Oximetry - Labs CBC & Chem 7: 09/23/18 04:46 09/23/18 04:46 Labs: Abnormal lab results 09/23/18 Range/Units 13:38 CK-MB (CK-2) Rel Index 4.5 H (0-4)
[2018-09-24] MEDS: PEPCID PO SCH ×2 (14:44→22:38)
[2018-09-24] MEDS: PRAVACHOL PO SCH (22:38)
[2018-09-24] MEDS: DESYREL PO SCH (22:38)
[2018-09-24] MEDS: LOVENOX SUB-Q SCH (22:38)
[2018-09-25] MEDS: NACL 0.9% 1000 ML 1,000 ML IV SCH (06:22)
[2018-09-25] MEDS: SOLU-Medrol IV SCH ×3 (06:22→22:42)
[2018-09-25] MEDS: DUONEB *Not for PRN Use IH SCH ×3 (07:47→19:26)
[2018-09-25] MEDS ORDERED: LEXISCAN IV ONE (08:58)
[2018-09-25] MEDS: HCTZ PO SCH (13:32)
[2018-09-25] MEDS: NORVASC PO SCH (13:32)
[2018-09-25] MEDS: ZESTRIL PO SCH (13:33)
[2018-09-25] MEDS: PEPCID PO SCH ×2 (13:36→22:34)
[2018-09-25] MEDS: SODIUM CHLORIDE FLUSH SYRINGE 10 ML IV SCH ×2 (13:37→22:42)
[2018-09-25] MEDS: ROBITUSSIN PO PRN ×2 (13:37→22:34)
[2018-09-25] MEDS: LEVAQUIN 750MG/150ML 750 MG/150 ML BAG IV SCH (13:37)
--- NOTE | 2018-09-25 14:57 | Progress Note ---
Assessment and Plan / Acute respiratory failure with hypoxia cont Neb Tx, IV solumedrol and IV Abx and O2 Bipap if necessary / Chest pain negative trop, denies any chest pain today s/p Lexiscan today, result pending Serial troponins negative / COPD exacerbation: Duonebs. IV Solumedrol and IV Levaquin for now Bipap if necessary / HTN (hypertension) Cont antihypertensives /HLD (hyperlipidemia) Cont Statins /Moderate PCM - BMI only 14 - low albumin, but normal prealbumin level - consulted dietary / DVT prophylaxis Lovenox and GI prophylaxis Disposition: pending on stress test result brief history: 68-year-old syrian female can speak ghanaian with a history of COPD and has home O2 as well as multiple nebulizers presents to the emergency room with complaints of difficulty breathing and shortness of breath and chest pain for 3 days. Physical exam: General appearance: Present: no acute distress, cachectic - EENT Eyes: PERRL, EOM intact ENT: hearing intact, clear oral mucosa Ears: bilateral: normal - Neck Neck: supple, normal ROM - Respiratory Respiratory effort: normal Respiratory: bilateral: diminished - Cardiovascular Rhythm: regular Heart Sounds: Present: S1 & S2. Absent: gallop, rub Extremities: pulses intact, No edema, normal color, Full ROM - Gastrointestinal General gastrointestinal: Present: soft, non-tender, non-distended, normal bowel sounds - Integumentary Integumentary: clear, warm, dry - Musculoskeletal Musculoskeletal: 1, strength equal bilaterally - Neurologic Neurologic: moves all extremities - Psychiatric Psychiatric: memory intact, appropriate mood/affect, intact judgment & insight Subjective Date of service: 09/25/18 Interval history: Pt seen and examined s/p stress test today Improved SOB and no chest pain Objective - Constitutional Vitals: Vital Signs - 12hr 09/25/18 09/25/18 09/25/18 03:02 07:47 07:57 Temperature Pulse Rate 109 H Pulse Rate [ 89 91 H Anterior Bilateral Throughout] Respiratory Rate Respiratory 18 20 Rate [Anterior Bilateral Throughout] Blood Pressure O2 Sat by Pulse 93 94 Oximetry 09/25/18 09/25/18 09/25/18 07:58 09:01 09:04 Temperature 97.6 F Pulse Rate 90 Pulse Rate [ Anterior Bilateral Throughout] Respiratory 19 Rate Respiratory Rate [Anterior Bilateral Throughout] Blood Pressure 125/60 140/72 133/72 O2 Sat by Pulse 94 Oximetry 09/25/18 09/25/18 09/25/18 09:54 09:56 09:58 Temperature Pulse Rate Pulse Rate [ Anterior Bilateral Throughout] Respiratory Rate Respiratory Rate [Anterior Bilateral Throughout] Blood Pressure 143/54 136/60 147/57 O2 Sat by Pulse Oximetry 09/25/18 09/25/18 09/25/18 10:00 10:01 10:02 Temperature Pulse Rate Pulse Rate [ Anterior Bilateral Throughout] Respiratory Rate Respiratory Rate [Anterior Bilateral Throughout] Blood Pressure 134/53 129/52 135/51 O2 Sat by Pulse Oximetry 09/25/18 09/25/18 09/25/18 12:57 13:32 13:33 Temperature 98.7 F Pulse Rate 94 H 94 H 94 H Pulse Rate [ Anterior Bilateral Throughout] Respiratory 20 Rate Respiratory Rate [Anterior Bilateral Throughout] Blood Pressure 104/51 104/51 104/51 O2 Sat by Pulse 96 Oximetry - Labs CBC & Chem 7: 09/23/18 04:46 09/23/18 04:46
--- NOTE | 2018-09-25 16:33 | Discharge Summary ---
Providers - Providers Date of Admission: 09/22/18 13:57 Date of discharge: 09/26/18 Attending physician: HELDER CAMPBELL 09/24/18 11:56 Consult to Dietitian/Nutrition [CONS] Routine Physician Instructions: Reason For Exam: Reason for Consult: Malnutrition Primary care physician: PHANI LUKE Hospitalization Reason for admission: SOB chest pain Pertinent studies: CXR stress test Hospital course: brief history: 68-year-old armenian female can speak new zealander with a history of COPD and has home O2 as well as multiple nebulizers presents to the emergency room with complaints of difficulty breathing and shortness of breath and chest pain for 3 days. Admitted for further evaluation and management. Discharge diagnosis and management: / Acute respiratory failure with hypoxia Due to COPD exacerbation, resolved managed with frequent Neb Tx, tapering IV solumedrol and IV Abx, supplemental O2, Bipap if necessary / Chest pain, likely from GERD negative trop, denies any chest pain on discharge Lexiscan was normal, will cont aspirin and statin / COPD exacerbation: Resolved managed with Duonebs, tapering IV Solumedrol and IV Levaquin Bipap ordered to use if necessary / HTN (hypertension), stable Continued antihypertensives /HLD (hyperlipidemia) Cont Statins /Moderate PCM - BMI only 14 - low albumin, but normal prealbumin level - consulted dietary / DVT and GI prophylaxis Placed on Lovenox and PPI Physical exam: General appearance: Present: no acute distress, cachectic - EENT Eyes: PERRL, EOM intact ENT: hearing intact, clear oral mucosa Ears: bilateral: normal - Neck Neck: supple, normal ROM - Respiratory Respiratory effort: normal Respiratory: bilateral: diminished - Cardiovascular Rhythm: regular Heart Sounds: Present: S1 & S2. Absent: gallop, rub Extremities: pulses intact, No edema, normal color, Full ROM - Gastrointestinal General gastrointestinal: Present: soft, non-tender, non-distended, normal bowel sounds - Integumentary Integumentary: clear, warm, dry - Musculoskeletal Musculoskeletal: 1, strength equal bilaterally - Neurologic Neurologic: moves all extremities - Psychiatric Psychiatric: memory intact, appropriate mood/affect, intact judgment & insight Disposition: DC-01 TO HOME OR SELFCARE Time spent for discharge: 34 minutes Core Measure Documentation - Palliative Care Palliative Care/ Comfort Measures: Not Applicable - Core Measures Any of the following diagnoses?: none Exam - Constitutional Vitals: Temp Pulse Resp BP Pulse Ox 98.7 F 94 H 20 104/51 96 09/25/18 12:57 09/25/18 13:33 09/25/18 12:57 09/25/18 13:33 09/25/18 12:57 Plan Activity: advance as tolerated, fall precautions Weight Bearing Status: Non-Weight Bearing Diet: regular Follow up with: PHANI LUKE MD [Primary Care Provider] - 7 Days Forms: Accompanied Note Prescriptions: Aspirin [Aspirin EC] 81 mg PO DAILY #30 tablet.dr Prednisone [predniSONE 10 mg (6-Day Pack, 21 Tabs)] 10 mg PO .TAPER #1 tab.ds.pk Budesonide/Formoterol Fumarate [Symbicort 160-4.5 Mcg Inhaler] 10.2 gm IH BID 30 Days hfa.aer.ad Azithromycin [Zithromax Z-GENOVEVA] 250 mg PO QDAY #3 tablet
--- NOTE | 2018-09-25 21:44 | Treadmill Report ---
THALLIUM STRESS TEST LEFT VENTRICLE: Left ventricular chamber size is within normal limits. Perfusion study demonstrates homogeneous uptake of the tracer in all segments, no significant defects identified. Gated analysis demonstrates normal left ventricular systolic function, ejection fraction of greater than 70%. CONCLUSION: Normal myocardial perfusion study. JOB# [id number] CA/NTS
[2018-09-25] MEDS ORDERED: SOLU-Medrol IV SCH (22:00)
[2018-09-25] MEDS: DESYREL PO SCH (22:34)
[2018-09-25] MEDS: PRAVACHOL PO SCH (22:34)
[2018-09-25] MEDS: LOVENOX SUB-Q SCH (22:34)
[2018-09-26] MEDS: DUONEB *Not for PRN Use IH SCH ×2 (07:15→14:47)
--- NOTE | 2018-09-26 07:42 | Event Note ---
Date: 09/26/18 Patient was not discharged yesterday because her ride left the hospital before the stress test result was reported. She will be discharge today morning.
[2018-09-26] MEDS: ZESTRIL PO SCH (09:23)
[2018-09-26] MEDS: HCTZ PO SCH (09:24)
[2018-09-26] MEDS: PEPCID PO SCH (09:24)
[2018-09-26] MEDS: SOLU-Medrol IV SCH (09:26)
[2018-09-26] MEDS: SODIUM CHLORIDE FLUSH SYRINGE 10 ML IV SCH (09:26)
[2018-09-26] MEDS: NORVASC PO SCH (09:26)
[2018-09-26 14:00] VITALS: BP 118/56
== END 2018-09-26 16:20 | disposition home or self-care (01) | DRG 189 ==
LOC: ED 10:04 → 2B-ACE 13:57
PROVIDERS: ADMIT Internal Medicine; ATTEND Internal Medicine
PROC: 3E0234Z Introduction of Serum, Toxoid and Vaccine into Muscle, Percutaneous Approach (ICD-10-PCS; principal; 2018-09-23)
DX: J96.01 Acute respiratory failure with hypoxia (principal); J44.1 Chronic obstructive pulmonary disease with (acute) exacerbation; Z68.1 Body mass index [BMI] 19.9 or less, adult; E44.0 Moderate protein-calorie malnutrition; R07.89 Other chest pain; E78.2 Mixed hyperlipidemia; Z99.81 Dependence on supplemental oxygen; Z87.891 Personal history of nicotine dependence; Z79.899 Other long term (current) drug therapy; Z79.51 Long term (current) use of inhaled steroids; Z86.73 Personal history of transient ischemic attack (TIA), and cerebral infarction without residual deficits; Z23 Encounter for immunization
CPT/HCPCS: 36415; 71045; 78452; 80053; 82140; 82550; 82553; 83036; 84134; 84484; 85007; 85025; 90732; 93005; 93010; 93017; 94640; 94760; G0378; A9270-GY; A9502; J0692; J1650; J1956; J2785; J2930; J7030

== ENCOUNTER 2021-07-04 14:29 | Emergency (ER) | payer MEDICARE ==
[2021-07-04] MEDS ORDERED: SODIUM CHLORIDE 0.9% 1000 ML IV SOLN IV ONE (14:43)
[2021-07-04] MEDS ORDERED: LIP THERAPY VASELINE TP PRN (14:43)
[2021-07-04] MEDS ORDERED: fentaNYL 100 MCG/2 ML INJ IV PRN (14:43)
[2021-07-04] MEDS ORDERED: MINERAL OIL/PETROLATUM, WHITE OPHTH OINT 3.5 GM OU PRN (14:43)
[2021-07-04] MEDS ORDERED: ROCURONIUM 50 MG/5 ML INJ IV ONE ×2 (14:43→18:22)
[2021-07-04] MEDS ORDERED: ETOMIDATE 20 MG/10 ML INJ IV ONE (14:43)
[2021-07-04] MEDS ORDERED: cefTRIAXone/NS 2 GM/100 ML 2 GM/100 ML BAG IV ONE (14:43)
[2021-07-04] MEDS ORDERED: IPRATROPIUM 0.02% NEBU 2.5 ML IH ONE (14:47)
[2021-07-04] MEDS ORDERED: dexAMETHasone 4 MG/ML VIAL IV ONE (14:47)
[2021-07-04] MEDS ORDERED: ALBUTEROL 2.5 MG/3 ML NEBU IH ONE (14:47)
--- NOTE | 2021-07-04 14:48 | Emergency Department Report ---
ED General Adult HPI - General Chief complaint: Altered Mental Status Stated complaint: AMS PUI?: Yes Time Seen by Provider: 07/04/21 14:42 Source: EMS (Verbal report received from emergency medical services. EMS documentation not available at time of chart dictation ), RN notes reviewed, old records reviewed Mode of arrival: Stretcher Limitations: Altered Mental Status, Physical Limitation - History of Present Illness Initial comments: The patient was evaluated in the emergency department for symptoms described in the history of present illness. He/she was evaluated in the context of the global COVID-19 pandemic, which necessitated consideration that the patient might be at risk for infection with the virus that causes COVID-19. Institutional protocols and algorithms that pertain to the evaluation of patients at risk for COVID-19 are in a state of rapid change based on information released by regulatory bodies including the CDC and federal and state organizations. These policies and algorithms were followed during the patient's care in the emergency department. Please note that these policies, procedures and recommendations changed on a rapid basis. The patient is a 70-year-old female. Her past medical history includes malnutrition, low TSH, COPD, possible lung mass, and encephalopathy. Old medical records indicate that she may have a history of aneurysm, as well as dementia. She is brought to the hospital by emergency medical services. The patient is altered, and history is obtained from EMS. EMS reports the patient is last known normal at 6:00 AM. They report she has a history of stroke, with some residual deficits. They reported in the field that the patient was hypoxic, and febrile to 105 degrees. The patient is placed on supplemental oxygen. Upon arrival to the emergency room, the patient is altered. She is drooling and does not have a gag reflex. She is not able to protect her airway. She is found to have intact corneal reflexes, and moves her bilateral upper extremities and left lower extremity in response to painful noxious stimuli. EMS indicates that they believe the patient is a full code. Furthermore, this patient is not accompanied by an adult for collateral information or additional information. The patient herself is acutely altered, and not able to describe the qualitative nature of symptoms, exacerbating factors relieving factors or aggravating fact ors. EMS further indicates that they are not aware of any advanced directives or goals of care. Therefore, the patient is intubated using rapid sequence induction techniques. Please see procedure note. After intubation, code stroke was called overhead for altered mental status. EMS reports appropriate Accu-Chek in the field. -: unknown - Related Data Home Medications Medication Instructions Recorded Confirmed Last Taken Benzotrophen 25 mg PO BID 03/15/16 09/23/18 Unknown Loxapine (Nf) [Loxitane (Nf)] 25 mg PO DAILY 03/15/16 09/23/18 Unknown Pravastatin Sodium [Pravastatin] 20 mg PO QHS 08/25/16 09/23/18 1 Day Ago ~09/21/18 20 mg Rasagiline Mesylate [Azilect] 1 mg PO QDAY 08/25/16 09/23/18 Unknown traZODone [Desyrel] 100 mg PO QHS 09/22/18 09/23/18 1 Day Ago ~09/21/18 100 mg Previous Rx's Medication Instructions Recorded Last Taken Type Promethazine /Codeine 5 ml PO Q6H PRN #120 ml 08/25/16 Unknown Rx [Phenergan/Codeine 6.25-10 mg/5 ml] Aspirin [Aspirin EC] 81 mg PO DAILY #30 tablet. 09/26/18 Unknown Rx ALBUTEROL NEB's [Proventil 0.083% 2.5 mg IH TID PRN #90 neb 09/01/19 Unknown Rx NEBS] Albuterol Mdi (or & Nicu Only) 2 puff IH QID PRN #1 inhalation 09/01/19 Unknown Rx [ProAir HFA Inhaler] Budesonide/Formoterol Fumarate 2 puff IH BID #1 hfa.aer.ad 09/01/19 Unknown Rx [Symbicort 160-4.5 Mcg Inhaler] Budesonide/Formoterol Fumarate 10.2 gm IH BID 30 Days hfa.aer.ad 09/01/19 Unknown Rx [Symbicort 160-4.5 Mcg Inhaler] Nebulizer [Aeroneb Go Nebuliser] 1 each MC PRN #1 each 09/01/19 Unknown Rx Pantoprazole [Protonix TAB] 40 mg PO DAILY #30 tablet 09/01/19 Unknown Rx Tiotropium [place] [Spiriva 2 puff IH DAILY #1 mist.inhal 09/01/19 Unknown Rx Respimat] amLODIPine 10 mg PO DAILY #90 09/01/19 Unknown Rx predniSONE [Deltasone] 0 mg PO QDAY Days tab 09/01/19 Unknown Rx Allergies Allergy/AdvReac Type Severity Reaction Status Date / Time No Known Allergies Allergy Verified 03/15/16 11:27 ED Review of Systems ROS: Stated complaint: AMS Other details as noted in HPI Comment: Unobtainable due to pts medical conditions ED Past Medical Hx - Past Medical History Hx Hypertension: Yes Hx CVA: Yes Hx COPD: Yes Hx HIV: No - Surgical History Additional Surgical History: BRAIN ANEURYSM REPAIR - Social History Smoking Status: Former Smoker - Medications Home Medications: Home Medications Medication Instructions Recorded Confirmed Last Taken Type Benzotrophen 25 mg PO BID 03/15/16 09/23/18 Unknown History Loxapine (Nf) [Loxitane (Nf)] 25 mg PO DAILY 03/15/16 09/23/18 Unknown History Pravastatin Sodium [Pravastatin] 20 mg PO QHS 08/25/16 09/23/18 1 Day Ago History ~09/21/18 20 mg Promethazine /Codeine 5 ml PO Q6H PRN #120 ml 08/25/16 09/23/18 Unknown Rx [Phenergan/Codeine 6.25-10 mg/5 ml] Rasagiline Mesylate [Azilect] 1 mg PO QDAY 08/25/16 09/23/18 Unknown History traZODone [Desyrel] 100 mg PO QHS 09/22/18 09/23/18 1 Day Ago History ~09/21/18 100 mg Aspirin [Aspirin EC] 81 mg PO DAILY #30 tablet. 09/26/18 Unknown Rx ALBUTEROL NEB's [Proventil 0.083% 2.5 mg IH TID PRN #90 neb 09/01/19 Unknown Rx NEBS] Albuterol Mdi (or & Nicu Only) 2 puff IH QID PRN #1 inhalation 09/01/19 Unknown Rx [ProAir HFA Inhaler] Budesonide/Formoterol Fumarate 2 puff IH BID #1 hfa.aer.ad 09/01/19 Unknown Rx [Symbicort 160-4.5 Mcg Inhaler] Budesonide/Formoterol Fumarate 10.2 gm IH BID 30 Days hfa.aer.ad 09/01/19 Unknown Rx [Symbicort 160-4.5 Mcg Inhaler] Nebulizer [Aeroneb Go Nebuliser] 1 each MC PRN #1 each 09/01/19 Unknown Rx Pantoprazole [Protonix TAB] 40 mg PO DAILY #30 tablet 09/01/19 Unknown Rx Tiotropium [place] [Spiriva 2 puff IH DAILY #1 mist.inhal 09/01/19 Unknown Rx Respimat] amLODIPine 10 mg PO DAILY #90 09/01/19 Unknown Rx predniSONE [Deltasone] 0 mg PO QDAY 16 Days tab 09/01/19 Unknown Rx ED Physical Exam - General Limitations: Altered Mental Status, Physical Limitation General appearance: obtunded - Head Head exam: Present: atraumatic, normocephalic - Eye Eye exam: Present: normal appearance - ENT ENT exam: Present: mucous membranes dry, other (Patient is drooling. The patient does not have a gag reflex) - Neck Neck exam: Present: normal inspection. Absent: tenderness, meningismus - Respiratory Respiratory exam: Present: respiratory distress, rales, rhonchi - Cardiovascular Cardiovascular Exam: Present: normal rhythm, tachycardia, normal heart sounds. Absent: bradycardia, irregular rhythm, systolic murmur, diastolic murmur, rubs, gallop - GI/Abdominal GI/Abdominal exam: Present: soft. Absent: distended, tenderness, guarding, rebound, rigid, pulsatile mass - Rectal Rectal exam: Present: normal inspection, other (Chaperoned by nurse Mona Patton) - External exam: Present: normal external exam, other (Chaperoned by nurse Mona Patton) - Extremities Exam Extremities exam: Present: normal inspection, other (2+ pulses noted in the bilateral upper and lower extremities. There is no palpable cord. negative Homans sign. Muscular compartments are soft. The pelvis is stable.) - Back Exam Back exam: Present: normal inspection. Absent: tenderness, CVA tenderness (R), CVA tenderness (L), paraspinal tenderness, vertebral tenderness - Neurological Exam Neurological exam: Present: altered, other (The patient is altered. The patient is drooling. Corneal reflexes are intact prior to paralysis. Moves left lower extremity spontaneously. Moves bilateral upper extremities spontaneously.) - Psychiatric Psychiatric exam: Present: other (The patient is nonverbal) - Skin Skin exam: Present: warm, dry, intact, normal color. Absent: rash ED Course Vital Signs 07/04/21 07/04/21 07/04/21 14:37 14:46 14:51 Temperature 99.2 F Pulse Rate 125 H 72 Pulse Rate [ Anterior] Pulse Rate [ Posterior] Respiratory 16 11 L Rate Respiratory Rate [Anterior] Respiratory Rate [Posterior ] Blood Pressure 126/63 Blood Pressure 203/114 [Left] O2 Sat by Pulse 100 97 Oximetry 07/04/21 07/04/21 07/04/21 15:00 15:15 15:30 Temperature Pulse Rate 114 H 107 H 109 H Pulse Rate [ Anterior] Pulse Rate [ Posterior] Respiratory 12 12 12 Rate Respiratory Rate [Anterior] Respiratory Rate [Posterior ] Blood Pressure 219/107 178/96 170/101 Blood Pressure [Left] O2 Sat by Pulse 100 100 98 Oximetry 07/04/21 07/04/21 07/04/21 16:05 16:15 16:30 Temperature Pulse Rate 90 97 H 84 Pulse Rate [ Anterior] Pulse Rate [ Posterior] Respiratory 12 12 12 Rate Respiratory Rate [Anterior] Respiratory Rate [Posterior ] Blood Pressure 207/88 207/88 221/92 Blood Pressure [Left] O2 Sat by Pulse 100 100 100 Oximetry 07/04/21 07/04/21 07/04/21 16:42 16:45 16:55 Temperature Pulse Rate 82 Pulse Rate [ 88 Anterior] Pulse Rate [ 94 H Posterior] Respiratory 12 Rate Respiratory 14 Rate [Anterior] Respiratory 24 Rate [Posterior ] Blood Pressure 221/92 Blood Pressure [Left] O2 Sat by Pulse 100 100 Oximetry 07/04/21 07/04/21 07/04/21 17:01 17:15 17:31 Temperature Pulse Rate 82 85 82 Pulse Rate [ Anterior] Pulse Rate [ Posterior] Respiratory 14 14 12 Rate Respiratory Rate [Anterior] Respiratory Rate [Posterior ] Blood Pressure 221/92 221/92 221/92 Blood Pressure [Left] O2 Sat by Pulse 99 100 100 Oximetry 07/04/21 07/04/21 07/04/21 17:45 18:00 18:15 Temperature Pulse Rate 79 66 72 Pulse Rate [ Anterior] Pulse Rate [ Posterior] Respiratory 14 12 12 Rate Respiratory Rate [Anterior] Respiratory Rate [Posterior ] Blood Pressure 140/79 87/52 126/63 Blood Pressure [Left] O2 Sat by Pulse 99 100 100 Oximetry - Reevaluation(s) Reevaluation #1: 07/04/21 15:47 Differential diagnosis, including but not limited to: Acute hypoxic respiratory failure, acute hypercarbic respiratory failure, pneumonia, COPD exacerbation, urinary tract infection, COVID-19, electrolyte derangement, thyroid derangement, large vessel occlusion Intracranial hemorrhage Assessment and plan: 70-year-old female with acute encephalopathy and altered mental status, inability to protect airway, and currently not accompanied by family or friends, also without advanced directives or goals of care in place as per verbal report from EMS. She is intubated for airway protection. A code stroke was called overhead. tPA is contraindicated as the patient is not presenting within 4.5 hours of her last known well time, and her last known well time is not explicitly known. An emergent CT head, CT angiogram head and neck will be obtained. Patiently medicated according to the sepsis pathway and Covid pathway. Broad-spectrum antibiotics, and high-dose steroids will be administered. Maintain patient on isolation. Contacted critical care physician on-call, Dr. Maya Discussed the patient's presentation, clinical impression and overall plan of care. He is in agreement with the plan of care, and his group will follow in consultation, presuming no findings are identified that would require transfer to a higher level of care. We will reassess after patient is data points have resulted. 07/04/21 16:04 Discussed with patient's son Mr. Beltran Curry; [phone] he reports patient's last known well time is 2:00 in the morning. He reports that the patient fell today, but he also reports that patient seemed off. The patient is not COVID-19 vaccinated. The patient has been home for about 3 to 4 months. The patient used to see Dr. Milton Finn who is now retired. The patient's son indicated that the patient does have a local primary care doctor, but he cannot recall their name. I discussed the plan of care with the patient's son. He articulated understanding. All questions answered. He does request a call back after the patient's diagnostic work-up has been completed. 07/04/21 16:51 Laboratory studies suggestive of hypernatremia, likely secondary to dehydration. Fluids have been ordered. X-ray the chest, abdomen are reviewed and appreciated. Elevated troponin is likely a type II troponin leak. Awaiting callback from neurology. Awaiting CT scan brain interpretation, CT angiogram head and neck interpretation 07/04/21 17:09 Patient is found to have a subarachnoid hemorrhage. There is evidence of obstructive hydrocephalus. Patient is markedly hypertensive. Her Kumar and Mccullough score preintubation is 4 Have emergently ordered initiation of Cardene drip. Have ordered mannitol/osmotherapy. No evidence of pupillary asymmetry. Have also discussed these medication orders with the nursing staff. This hospital is not able to provide the appropriate neurology critical care interventions for this particular patient, as we are not able to provide EVD monitoring. The patient will require transfer to facility that can provide neurosurgical/neuro critical care interventions. We are working to transfer this patient. The critical care physician has been updated. 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 Elevated troponin is still suspected to be a type II troponin leak. At this point in time, do not require telemetry neurology consultation We will discuss with neurology critical care at receiving facilities, and optimize this patient's medical management. 07/04/21 17:37 Discussed patient's history, physical, laboratory studies and imaging studies and clinical impression with neurology critical care, Dr. Jiménez at [facility]. He has graciously accepted this patient as a transfer. Hyperventilation is not recommended. He is in agreement with aminocaproic acid and the aforementioned medical therapy. This hospital does not have the capability of providing EVD, as we do not have the EVD drains. Furthermore, this patient requires emergent decompression, which we are not able to provide, secondary to not having EVD's, or EVD monitoring. This patient has an emergent medical/surgical condition, which cannot be definitively managed at this time. I called up the patient's son to update him on the patient's care, and her current status, and he did not answer. I left a voicemail for call back. Patient is emergently and administratively consented by myself for transfer for definitive care, for services not available at this facility. The patient does have an emergent time sensitive condition at this time, therefore, we are working on emergently transferring this patient out of the emergency room, to [facility] 07/04/21 17:56 I was able to get in touch with the patient's son. I updated him on the plan of care, and current recommendations. He has provided verbal informed consent for transfer. Receiving team is updated. - Intubation Time Out Performed: No (Emergency situation) Sedative: Etomidate (20 mg) Mg Given: 20 Paralytic: Rocuronium (100 mg) Mg Given: 100 Laryngoscope: fiberoptic video scope Size: 4 Assist Device Used: fiberoptic device ET Tube Size: 7.5 Tube Secured Depth (cm): 23 Tube Secured Location: teeth Tube Placement Confirmation: visualized tube passing t, equal breath sounds bilat, no breath sounds over epi, confirmation by capnometr Patient Tolerated Procedure: well Intubation Complications: none Additional Comments: Patient placed on nasal cannula at 15 L/min. Receives [id number] assisted ventilation simultaneously. Patient induced with 20 mg of etomidate. Patient paralyzed with 100 mg of rocuronium. Video laryngoscopy is performed with a curved S4 glide scope blade, trachea is noted with excellent visualization, the airways aggressively suctioned, and a 7.5 endotracheal tube is inserted under direct guidance to the trachea. The patient tolerated this procedure well, the commercial pilot balloon is subsequently inflated, end-tidal capnography demonstrates appropriate color change, breath sounds are appreciated bilaterally, and the patient continues to saturate 100% on mechanical ventilation. ED Medical Decision Making - Lab Data Result diagrams: 07/04/21 15:41 07/04/21 15:41 Vital Signs 07/04/21 14:37 Temperature 99.2 F Pulse Rate 125 H Respiratory 16 Rate Blood Pressure 203/114 [Left] O2 Sat by Pulse 100 Oximetry Lab Results 07/04/21 Range/Units 15:34 Ur Reducing Substances Not Reportable Urine Bilirubin Neg (Negative) Urine Ictotest Not Reportable Urine RBC (Auto) 3.0 (0.0-6.0) /HPF U Epithel Cells (Auto) 1.0 (0-13.0) /HPF Lab Results 07/04/21 07/04/21 07/04/21 Range/Units 15:34 15:41 15:41 WBC 6.6 (4.5-11.0) K/mm3 RBC 4.10 (3.65-5.03) M/mm3 Hgb 11.3 (10.1-14.3) gm/dl Hct 36.7 (30.3-42.9) % MCV 90 (79-97) fl MCH 27 L (28-32) pg MCHC 31 (30-34) % RDW 13.0 L (13.2-15.2) % Plt Count 141 (140-440) K/mm3 Lymph % (Auto) 7.1 L (13.4-35.0) % Ponce % (Auto) 5.5 (0.0-7.3) % Eos % (Auto) 0.0 (0.0-4.3) % Baso % (Auto) 0.1 (0.0-1.8) % Lymph # (Auto) 0.5 L (1.2-5.4) K/mm3 Ponce # (Auto) 0.4 (0.0-0.8) K/mm3 Eos # (Auto) 0.0 (0.0-0.4) K/mm3 Baso # (Auto) 0.0 (0.0-0.1) K/mm3 Seg Neutrophils % 87.3 H (40.0-70.0) % Seg Neutrophils # 5.8 (1.8-7.7) K/mm3 PT 12.3 (12.2-14.9) Sec. INR 0.82 L (0.87-1.13) APTT 24.2 (24.2-36.6) Sec. Thrombin Time 16.3 (15.1-19.6) Sec. D-Dimer 3031.58 H (0-234) ng/mlDDU Sodium (137-145) mmol/L Potassium (3.6-5.0) mmol/L Chloride (98-107) mmol/L Carbon Dioxide (22-30) mmol/L Anion Gap mmol/L BUN (7-17) mg/dL Creatinine (0.6-1.2) mg/dL Estimated GFR ml/min BUN/Creatinine Ratio % Glucose (65-100) mg/dL Lactic Acid (0.7-2.0) mmol/L Calcium (8.4-10.2) mg/dL Ferritin (10.0-200.0) ng/mL Total Bilirubin (0.1-1.2) mg/dL AST (5-40) units/L ALT (7-56) units/L Alkaline Phosphatase (35-129) units/L Ammonia (25-60) umol/L Lactate Dehydrogenase (91-180) units/L Total Creatine Kinase (30-135) units/L CK-MB (CK-2) (0.0-4.0) ng/mL CK-MB (CK-2) Rel Index (0-4) Troponin T (0.00-0.029) ng/mL C-Reactive Protein (0.00-1.30) mg/dL Total Protein (6.3-8.2) g/dL Albumin (3.9-5) g/dL Albumin/Globulin Ratio % Triglycerides (2-149) mg/dL Cholesterol (50-199) mg/dL LDL Cholesterol Direct (50-130) mg/dL HDL Cholesterol (40-59) mg/dL Cholesterol/HDL Ratio % TSH (0.270-4.200) mlU/mL Urine Color Yellow (Yellow) Urine Turbidity Cloudy (Clear) Urine pH 9.0 H (5.0-7.0) Ur Specific [place] 1.015 (1.003-1.030) Urine Protein 100 mg/dl (Negative) mg/dL Urine Glucose (UA) Neg (Negative) mg/dL Urine Ketones 20 (Negative) mg/dL Urine Blood Neg (Negative) Urine Nitrite Neg (Negative) Ur Reducing Substances Not Reportable Urine Bilirubin Neg (Negative) Urine Ictotest Not Reportable Urine Urobilinogen < 2.0 (<2.0) mg/dL Ur Leukocyte Esterase Neg (Negative) Urine WBC (Auto) 4.0 (0.0-6.0) /HPF Urine RBC (Auto) 3.0 (0.0-6.0) /HPF U Epithel Cells (Auto) 1.0 (0-13.0) /HPF Urine Bacteria (Auto) 1+ (Negative) /HPF Urine Mucus Few /HPF Urine Yeast (Budding) 1+ /HPF Salicylates (2.8-20.0) mg/dL Acetaminophen (10.0-30.0) ug/mL Plasma/Serum Alcohol (0-0.07) % 07/04/21 07/04/21 07/04/21 Range/Units 15:41 15:41 15:41 WBC (4.5-11.0) K/mm3 RBC (3.65-5.03) M/mm3 Hgb (10.1-14.3) gm/dl Hct (30.3-42.9) % MCV (79-97) fl MCH (28-32) pg MCHC (30-34) % RDW (13.2-15.2) % Plt Count (140-440) K/mm3 Lymph % (Auto) (13.4-35.0) % Ponce % (Auto) (0.0-7.3) % Eos % (Auto) (0.0-4.3) % Baso % (Auto) (0.0-1.8) % Lymph # (Auto) (1.2-5.4) K/mm3 Ponce # (Auto) (0.0-0.8) K/mm3 Eos # (Auto) (0.0-0.4) K/mm3 Baso # (Auto) (0.0-0.1) K/mm3 Seg Neutrophils % (40.0-70.0) % Seg Neutrophils # (1.8-7.7) K/mm3 PT (12.2-14.9) Sec. INR (0.87-1.13) APTT (24.2-36.6) Sec. Thrombin Time (15.1-19.6) Sec. D-Dimer (0-234) ng/mlDDU Sodium (137-145) mmol/L Potassium (3.6-5.0) mmol/L Chloride (98-107) mmol/L Carbon Dioxide (22-30) mmol/L Anion Gap mmol/L BUN (7-17) mg/dL Creatinine (0.6-1.2) mg/dL Estimated GFR ml/min BUN/Creatinine Ratio % Glucose 119 H (65-100) mg/dL Lactic Acid 1.50 (0.7-2.0) mmol/L Calcium (8.4-10.2) mg/dL Ferritin 95.7 (10.0-200.0) ng/mL Total Bilirubin (0.1-1.2) mg/dL AST (5-40) units/L ALT (7-56) units/L Alkaline Phosphatase (35-129) units/L Ammonia (25-60) umol/L Lactate Dehydrogenase 277 H (91-180) units/L Total Creatine Kinase 235 H (30-135) units/L CK-MB (CK-2) 4.7 H (0.0-4.0) ng/mL CK-MB (CK-2) Rel Index 2.0 (0-4) Troponin T 0.057 H (0.00-0.029) ng/mL C-Reactive Protein 1.00 (0.00-1.30) mg/dL Total Protein (6.3-8.2) g/dL Albumin (3.9-5) g/dL Albumin/Globulin Ratio % Triglycerides 74 (2-149) mg/dL Cholesterol 272 H (50-199) mg/dL LDL Cholesterol Direct 128 (50-130) mg/dL HDL Cholesterol 145 H (40-59) mg/dL Cholesterol/HDL Ratio 1.87 % TSH (0.270-4.200) mlU/mL Urine Color (Yellow) Urine Turbidity (Clear) Urine pH (5.0-7.0) Ur Specific [place] (1.003-1.030) Urine Protein (Negative) mg/dL Urine Glucose (UA) (Negative) mg/dL Urine Ketones (Negative) mg/dL Urine Blood (Negative) Urine Nitrite (Negative) Ur Reducing Substances Urine Bilirubin (Negative) Urine Ictotest Urine Urobilinogen (<2.0) mg/dL Ur Leukocyte Esterase (Negative) Urine WBC (Auto) (0.0-6.0) /HPF Urine RBC (Auto) (0.0-6.0) /HPF U Epithel Cells (Auto) (0-13.0) /HPF Urine Bacteria (Auto) (Negative) /HPF Urine Mucus /HPF Urine Yeast (Budding) /HPF Salicylates (2.8-20.0) mg/dL Acetaminophen (10.0-30.0) ug/mL Plasma/Serum Alcohol (0-0.07) % 07/04/21 07/04/21 07/04/21 Range/Units 15:41 15:41 15:41 WBC (4.5-11.0) K/mm3 RBC (3.65-5.03) M/mm3 Hgb (10.1-14.3) gm/dl Hct (30.3-42.9) % MCV (79-97) fl MCH (28-32) pg MCHC (30-34) % RDW (13.2-15.2) % Plt Count (140-440) K/mm3 Lymph % (Auto) (13.4-35.0) % Ponce % (Auto) (0.0-7.3) % Eos % (Auto) (0.0-4.3) % Baso % (Auto) (0.0-1.8) % Lymph # (Auto) (1.2-5.4) K/mm3 Ponce # (Auto) (0.0-0.8) K/mm3 Eos # (Auto) (0.0-0.4) K/mm3 Baso # (Auto) (0.0-0.1) K/mm3 Seg Neutrophils % (40.0-70.0) % Seg Neutrophils # (1.8-7.7) K/mm3 PT (12.2-14.9) Sec. INR (0.87-1.13) APTT (24.2-36.6) Sec. Thrombin Time (15.1-19.6) Sec. D-Dimer (0-234) ng/mlDDU Sodium 150 H (137-145) mmol/L Potassium 3.2 L (3.6-5.0) mmol/L Chloride 96.6 L (98-107) mmol/L Carbon Dioxide 36 H (22-30) mmol/L Anion Gap 21 mmol/L BUN 15 (7-17) mg/dL Creatinine 0.5 L (0.6-1.2) mg/dL Estimated GFR > 60 ml/min BUN/Creatinine Ratio 30 % Glucose 120 H (65-100) mg/dL Lactic Acid (0.7-2.0) mmol/L Calcium 9.9 (8.4-10.2) mg/dL Ferritin (10.0-200.0) ng/mL Total Bilirubin 0.50 (0.1-1.2) mg/dL AST 26 (5-40) units/L ALT 14 (7-56) units/L Alkaline Phosphatase 72 (35-129) units/L Ammonia 27.0 (25-60) umol/L Lactate Dehydrogenase (91-180) units/L Total Creatine Kinase (30-135) units/L CK-MB (CK-2) (0.0-4.0) ng/mL CK-MB (CK-2) Rel Index (0-4) Troponin T (0.00-0.029) ng/mL C-Reactive Protein (0.00-1.30) mg/dL Total Protein 7.2 (6.3-8.2) g/dL Albumin 4.5 (3.9-5) g/dL Albumin/Globulin Ratio 1.7 % Triglycerides (2-149) mg/dL Cholesterol (50-199) mg/dL LDL Cholesterol Direct (50-130) mg/dL HDL Cholesterol (40-59) mg/dL Cholesterol/HDL Ratio % TSH (0.270-4.200) mlU/mL Urine Color (Yellow) Urine Turbidity (Clear) Urine pH (5.0-7.0) Ur Specific [place] (1.003-1.030) Urine Protein (Negative) mg/dL Urine Glucose (UA) (Negative) mg/dL Urine Ketones (Negative) mg/dL Urine Blood (Negative) Urine Nitrite (Negative) Ur Reducing Substances Urine Bilirubin (Negative) Urine Ictotest Urine Urobilinogen (<2.0) mg/dL Ur Leukocyte Esterase (Negative) Urine WBC (Auto) (0.0-6.0) /HPF Urine RBC (Auto) (0.0-6.0) /HPF U Epithel Cells (Auto) (0-13.0) /HPF Urine Bacteria (Auto) (Negative) /HPF Urine Mucus /HPF Urine Yeast (Budding) /HPF Salicylates (2.8-20.0) mg/dL Acetaminophen (10.0-30.0) ug/mL Plasma/Serum Alcohol < 0.01 (0-0.07) % 07/04/21 07/04/21 07/04/21 Range/Units 15:41 15:41 15:41 WBC (4.5-11.0) K/mm3 RBC (3.65-5.03) M/mm3 Hgb (10.1-14.3) gm/dl Hct (30.3-42.9) % MCV (79-97) fl MCH (28-32) pg MCHC (30-34) % RDW (13.2-15.2) % Plt Count (140-440) K/mm3 Lymph % (Auto) (13.4-35.0) % Ponce % (Auto) (0.0-7.3) % Eos % (Auto) (0.0-4.3) % Baso % (Auto) (0.0-1.8) % Lymph # (Auto) (1.2-5.4) K/mm3 Ponce # (Auto) (0.0-0.8) K/mm3 Eos # (Auto) (0.0-0.4) K/mm3 Baso # (Auto) (0.0-0.1) K/mm3 Seg Neutrophils % (40.0-70.0) % Seg Neutrophils # (1.8-7.7) K/mm3 PT (12.2-14.9) Sec. INR (0.87-1.13) APTT (24.2-36.6) Sec. Thrombin Time (15.1-19.6) Sec. D-Dimer (0-234) ng/mlDDU Sodium (137-145) mmol/L Potassium (3.6-5.0) mmol/L Chloride (98-107) mmol/L Carbon Dioxide (22-30) mmol/L Anion Gap mmol/L BUN (7-17) mg/dL Creatinine (0.6-1.2) mg/dL Estimated GFR ml/min BUN/Creatinine Ratio % Glucose (65-100) mg/dL Lactic Acid (0.7-2.0) mmol/L Calcium (8.4-10.2) mg/dL Ferritin (10.0-200.0) ng/mL Total Bilirubin (0.1-1.2) mg/dL AST (5-40) units/L ALT (7-56) units/L Alkaline Phosphatase (35-129) units/L Ammonia (25-60) umol/L Lactate Dehydrogenase (91-180) units/L Total Creatine Kinase (30-135) units/L CK-MB (CK-2) (0.0-4.0) ng/mL CK-MB (CK-2) Rel Index (0-4) Troponin T (0.00-0.029) ng/mL C-Reactive Protein (0.00-1.30) mg/dL Total Protein (6.3-8.2) g/dL Albumin (3.9-5) g/dL Albumin/Globulin Ratio % Triglycerides (2-149) mg/dL Cholesterol (50-199) mg/dL LDL Cholesterol Direct (50-130) mg/dL HDL Cholesterol (40-59) mg/dL Cholesterol/HDL Ratio % TSH 0.323 (0.270-4.200) mlU/mL Urine Color (Yellow) Urine Turbidity (Clear) Urine pH (5.0-7.0) Ur Specific [place] (1.003-1.030) Urine Protein (Negative) mg/dL Urine Glucose (UA) (Negative) mg/dL Urine Ketones (Negative) mg/dL Urine Blood (Negative) Urine Nitrite (Negative) Ur Reducing Substances Urine Bilirubin (Negative) Urine Ictotest Urine Urobilinogen (<2.0) mg/dL Ur Leukocyte Esterase (Negative) Urine WBC (Auto) (0.0-6.0) /HPF Urine RBC (Auto) (0.0-6.0) /HPF U Epithel Cells (Auto) (0-13.0) /HPF Urine Bacteria (Auto) (Negative) /HPF Urine Mucus /HPF Urine Yeast (Budding) /HPF Salicylates < 0.3 L (2.8-20.0) mg/dL Acetaminophen 5.0 L (10.0-30.0) ug/mL Plasma/Serum Alcohol (0-0.07) % - EKG Data 07/04/21 15:50 The EKG is interpreted at 15: 25 Sinus rhythm, tachycardia, rate 104 bpm. Normal axis, normal P wave axis, left ventricular hypertrophy, QTC 483 ms. This is an abnormal EKG. This is not a STEMI. This appears to be unchanged when compared to prior EKG from August 2019. Atrial enlargement is suggested. - Radiology Data Radiology results: image reviewed ABDOMEN 1 VIEW(S) 07/04/2021 2:59 PM INDICATION / CLINICAL INFORMATION: ng placement. COMPARISON: None available. FINDINGS: The tip of an esophagogastric tube projects over the distal thoracic esophagus and should be advanced further distally into stomach.. Signer Name: Marco Still MD Signed: 07/04/2021 3:06 PM Workstation Name: [id number] CHEST 1 VIEW 07/04/2021 2:59 PM INDICATION / CLINICAL INFORMATION: acute resp failure/ETT PMT. COMPARISON: 08/27/2019 FINDINGS: SUPPORT DEVICES: NG tube enters stomach. ET tube has tip 6 cm above carroll. HEART / MEDIASTINUM: No significant abnormality. LUNGS / PLEURA: No significant pulmonary or pleural abnormality. No pneumothorax. ADDITIONAL FINDINGS: No significant additional findings. IMPRESSION: 1. No acute findings. Signer Name: Marco Still MD Signed: 07/04/2021 3:06 PM Workstation Name: [id number] CT BRAIN: 07/04/2021 INDICATION / CLINICAL INFORMATION: Stroke symptoms/acute ams. COMPARISON: CT brain 08/26/2020 FINDINGS: BRAIN/ INTRACRANIAL STRUCTURES: Unenhanced CT images of the brain were obtained. Patie nt has previously seen evidence of aneurysm repair, with aneurysm clips located in the vicinity of the middle cerebral artery trifurcations bilaterally, and evidence of aneurysm clip or coil near the left side of the basilar tip. There has been interval development of diffuse subarachnoid hemorrhage. In addition, some blood products are seen layering in the occipital horns of lateral ventricles. There is been interval development of significant hydrocephalus involving the lateral and third ventricles. EXTRACRANIAL STRUCTURES: Unremarkable. IMPRESSION: 1. Evidence of prior aneurysm repair at 3 locations. 2. Interval development of diffuse subarachnoid hemorrhage. 3. Interval development of significant hydrocephalus. 4. Intraventricular blood products noted. Positive critical result: Time of discovery: 1700 hours ET Notification: Alexander REYNAGA in the emergency department at [address] scans at this location are performed using dose reduction to ALARA by means of automated exposure control. Signer Name: Andrea Hager MD Signed: 07/04/2021 4:06 PM Workstation Name: [id number] CTA HEAD WITH CONTRAST 07/04/2021 HISTORY: stroke sx acute ams. Subarachnoid hemorrhage COMPARISON: None. TECHNIQUE: All CT scans at this location are performed using CT dose reduction for ALARA by means of automated exposure control.. 3-D/MIP reformats postprocessed. Percentage stenosis is determined by direct quantitative measurements of diseased internal carotid artery diameter compared with normal distal internal carotid artery reference segments or by criteria similar to NASCET where applicable. CONTRAST: 100 ml of Omnipaque 350 FINDINGS: Separately reported CT images of the brain demonstrate diffuse subarachnoid hemorrhage and prominent hydrocephalus. Patient has evidence of postop change with aneurysm clips present in the region of the middle cerebral artery trifurcations bilaterally and evidence of aneurysm coiling in the approximate position of the basilar tip. CTA HEAD: Intracranial vertebral arteries: No significant abnormality. Basilar artery: There is evidence of a coiled aneurysm in the vicinity of the basilar tip, with associated metallic artifact. In addition, there is evidence of a basilar tip aneurysm which measures approximately 1.1 cm in diameter, located along the posterior margin of the aneurysm coils. Posterior cerebral arteries: No significant abnormality. Intracranial internal carotid arteries: No significant abnormality. Anterior cerebral arteries: No significant abnormality. Middle cerebral arteries: Bilateral MCA trifurcation aneurysm clip, with no definite evidence of aneurysm. Dural venous sinuses:Not optimally opacified. No significant abnormality. Additional findings: None. IMPRESSION: 1. 1. 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 2. Evidence of prior aneurysm treatment and MCA trifurcations and basilar tip. Signer Name: Andrea Hager MD Signed: 07/04/2021 4:10 PM Workstation Name: [id number] CT BRAIN: 07/04/2021 INDICATION / CLINICAL INFORMATION: Stroke symptoms/acute ams. COMPARISON: CT brain 08/26/2020 FINDINGS: BRAIN/INTRACRANIAL STRUCTURES: Unenhanced CT images of the brain were obtained. Patient has previously seen evidence of aneurysm repair, with aneurysm clips located in the vicinity of the middle cerebral artery trifurcations bilaterally, and evidence of aneurysm clip or coil near the left side of the basilar tip. There has been interval development of diffuse subarachnoid hemorrhage. In addition, some blood products are seen layering in the occipital horns of lateral ventricles. There is been interval development of significant hydrocephalus involving the lateral and third ventricles. EXTRACRANIAL STRUCTURES: Unremarkable. IMPRESSION: 1. Evidence of prior aneurysm repair at 3 locations. 2. Interval development of diffuse subarachnoid hemorrhage. 3. Interval development of significant hydrocephalus. 4. Intraventricular blood products noted. Positive critical result: Time of discovery: 1700 hours ET Notification: Alexander REYNAGA in the emergency department at [address] scans at this location are performed using dose reduction to ALARA by means of automated exposure control. Signer Name: Andrea Hager MD Signed: 07/04/2021 4:06 PM Workstation Name: [id number] Critical Care Time: Yes Critical care time in (mins) excluding proc time.: 74 Critical care attestation.: If time is entered above; I have spent that time in minutes in the direct care of this critically ill patient, excluding procedure time. ED Disposition Clinical Impression: Acute encephalopathy, Acute respiratory failure, SIRS (systemic inflammatory response syndrome), Hypernatremia, Hypokalemia, Subarachnoid bleed, Obstructive hydrocephalus, Hypertensive emergency Disposition: 02 [facility] Is pt being admited?: No Does the pt Need Aspirin: No Condition: Critical Instructions: Hypertension (ED) Referrals: PRIMARY CARE, [Primary Care Provider] - 3-5 Days
[2021-07-04] MEDS ORDERED: fentaNYL DRIP Premix 2,000 MCG/100 ML BAG IV SCH (15:00)
[2021-07-04 15:47] LABS: Bacteria,Urine 1+ /HPF (Negative); Mucus,Urine FEW /HPF
[2021-07-04 15:48] LABS: Bilirubin,Urine NEG (Negative); Blood,Urine NEG (Negative); Color,Urine Yellow (Yellow); Urobilinogen,Urine < 2.0 mg/dL (<2.0)
--- NOTE | 2021-07-04 16:10 | XRay Report ---
ABDOMEN 1 VIEW(S) 07/04/2021 2:59 PM INDICATION / CLINICAL INFORMATION: ng placement. COMPARISON: None available. FINDINGS: The tip of an esophagogastric tube projects over the distal thoracic esophagus and should be advanced further distally into stomach.. Signer Name: Marco Still MD Signed: 07/04/2021 4:06 PM Workstation Name: [id number]
--- NOTE | 2021-07-04 16:11 | XRay Report ---
CHEST 1 VIEW 07/04/2021 2:59 PM INDICATION / CLINICAL INFORMATION: acute resp failure/ETT PMT. COMPARISON: 08/27/2019 FINDINGS: SUPPORT DEVICES: NG tube enters stomach. ET tube has tip 6 cm above carroll. HEART / MEDIASTINUM: No significant abnormality. LUNGS / PLEURA: No significant pulmonary or pleural abnormality. No pneumothorax. ADDITIONAL FINDINGS: No significant additional findings. IMPRESSION: 1. No acute findings. Signer Name: Marco Still MD Signed: 07/04/2021 4:06 PM Workstation Name: [id number]
[2021-07-04 16:17] LABS: Basophils % (Auto) 0.1 % (0.0-1.8); Hematocrit 36.7 % (30.3-42.9); Hemoglobin 11.3 gm/dl (10.1-14.3); Lymphocytes # (Auto) 0.5 K/mm3 (1.2-5.4); Lymphocytes % (Auto) 7.1 % (13.4-35.0); Mean Corpuscular HGB Conc 31 % (30-34); Mean Corpuscular Volume 90 fl (79-97); Monocytes # (Auto) 0.4 K/mm3 (0.0-0.8); Monocytes % (Auto) 5.5 % (0.0-7.3); Platelet Count 141 K/mm3 (140-440)
[2021-07-04 16:18] LABS: INR 0.82 (0.87-1.13)
[2021-07-04 16:19] LABS: Partial Thromboplastin Time 24.2 Sec. (24.2-36.6)
[2021-07-04 16:20] LABS: Thrombin Time 16.3 Sec. (15.1-19.6)
[2021-07-04 16:30] LABS: Creatine Kinase MB 4.7 ng/mL (0.0-4.0)
[2021-07-04 16:33] LABS: Alanine Aminotransferase 14 units/L (7-56); Albumin 4.5 g/dL (3.9-5); BUN/Creatinine Ratio 30; Blood Urea Nitrogen 15 mg/dL (7-17); Calcium 9.9 mg/dL (8.4-10.2); Hemolysis Index 12
[2021-07-04 16:47] LABS: Chol/HDL Ratio 1.87 %
[2021-07-04] MEDS ORDERED: POTASSIUM CHLORIDE 10 MEQ 10 MEQ/100 ML BAG IV SCH (17:00)
[2021-07-04] MEDS ORDERED: levETIRAcetam 1000 MG/NS 0.75% 1,000 MG/100 ML BAG IV ONE ×2 (17:06)
--- NOTE | 2021-07-04 17:10 | Cat Scan Report ---
CT BRAIN: 07/04/2021 INDICATION / CLINICAL INFORMATION: Stroke symptoms/acute ams. COMPARISON: CT brain 08/26/2020 FINDINGS: BRAIN/INTRACRANIAL STRUCTURES: Unenhanced CT images of the brain were obtained. Patient has previously seen evidence of aneurysm repair, with aneurysm clips located in the vicinity of the middle cerebral artery trifurcations bilaterally, and evidence of aneurysm clip or coil near t he left side of the basilar tip. There has been interval development of diffuse subarachnoid hemorrhage. In addition, some blood produ cts are seen layering in the occipital horns of lateral ventricles. There is been interval development of significant hydrocephalus involving the lateral and third ventr icles. EXTRACRANIAL STRUCTURES: Unremarkable. IMPRESSION: 1. Evidence of prior aneurysm repair at 3 locations. 2. Interval development of diffuse subarachnoid hemorrhage. 3. Interval development of significant hydrocephalus. 4. Intraventricular blood products noted. Positive critical result: Time of discovery: 1700 hours ET Notification: Alexander REYNAGA in the emergency department at [address] scans at this location are performed using dose reduction to ALARA by means of automated expos ure control. Signer Name: Andrea Hager MD Signed: 07/04/2021 5:06 PM Workstation Name: [id number]
--- NOTE | 2021-07-04 17:14 | Cat Scan Report ---
CTA HEAD WITH CONTRAST 07/04/2021 HISTORY: stroke sx acute ams. Subarachnoid hemorrhage COMPARISON: None. TECHNIQUE: All CT scans at this location are performed using CT dose reduction for ALARA by means of automated exposure control.. 3-D/MIP reformats postprocessed. Percentage stenosis is determined by d irect quantitative measurements of diseased internal carotid artery diameter compared with normal dis cisco internal carotid artery reference segments or by criteria similar to NASCET where applicable. CONTRAST: 100 ml of Omnipaque 350 FINDINGS: Separately reported CT images of the brain demonstrate diffuse subarachnoid hemorrhage and prominent hydrocephalus. Patient has evidence of postop change with aneurysm clips present in the region of the middle cerebral artery trifurcations bilaterally and evidence of aneurysm coiling in the approximate position of the basilar tip. CTA HEAD: Intracranial vertebral arteries: No significant abnormality. Basilar artery: There is evidence of a coiled aneurysm in the vicinity of the basilar tip, with assoc iated metallic artifact. In addition, there is evidence of a basilar tip aneurysm which measures appr oximately 1.1 cm in diameter, located along the posterior margin of the aneurysm coils. Posterior cerebral arteries: No significant abnormality. Intracranial internal carotid arteries: No significant abnormality. Anterior cerebral arteries: No significant abnormality. Middle cerebral arteries: Bilateral MCA trifurcation aneurysm clip, with no definite evidence of aneu rysm. Dural venous sinuses:Not optimally opacified. No significant abnormality. Additional findings: None. IMPRESSION: 1. 1. 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 2. Evidence of prior aneurysm treatment and MCA trifurcations and basilar tip. Signer Name: Andrea Hager MD Signed: 07/04/2021 5:10 PM Workstation Name: [id number]
[2021-07-04] MEDS ORDERED: MANNITOL 20% 500 ML IV STA (17:15)
--- NOTE | 2021-07-04 17:15 | Cat Scan Report ---
CTA NECK WITH CONTRAST 07/04/2021 INDICATION / CLINICAL INFORMATION: stroke sx acute ams. COMPARISON: None. TECHNIQUE: Routine CTA of the neck is performed. 3-D/MIP reformats were postprocessed. Percentage st enosis is determined by direct quantitative measurements of diseased internal carotid artery diameter compared with normal distal internal carotid artery reference segments or by criteria similar to HOMAR CET where applicable. All CT scans at this location are performed using CT dose reduction for ALARA b y means of automated exposure control. CONTRAST: 100 ml of Omnipaque 350 FINDINGS: Carotid bifurcations: At the left bifurcation, atherosclerotic vascular calcifications are present, a ssociated with approximately 50% narrowing. Right bifurcation demonstrates some mild narrowing of the distal common carotid artery with no evidence of significant stenosis. Carotid arteries: No significant abnormality. Cervical vertebral arteries: No significant abnormality. Aortic arch: No significant abnormality. Patient has nasogastric tube and endotracheal tube in position. The lower extent of these tubes are n ot visible on this neck exam. IMPRESSION: No significant abnormality. Signer Name: Andrea Hager MD Signed: 07/04/2021 5:11 PM Workstation Name: [id number]
[2021-07-04 17:16] LABS: ABG Base Excess 6.4 mmol/L (-2.0-3.0); ABG HCO3 32.3 mmol/L (20.0-26.0); ABG Methemoglobin 0.5 % (0.0-1.5); ABG Oxygen Saturation 98.5 % (95.0-99.0); ABG PCO2 52.9 mm Hg; ABG PH 7.404 pH Units (7.350-7.450); ABG PO2 134.6 mm Hg (80.0-90.0)
[2021-07-04] MEDS ORDERED: AMINOCAPROIC ACID 5,000 MG in SODIUM CHLORIDE 0.9% 100 ML IV ONE (17:40)
[2021-07-04] MEDS ORDERED: SODIUM CHLORIDE 0.9% 500 ML 500 ML ONE (17:52)
[2021-07-04] MEDS ORDERED: niCARdipine 50 MG in SODIUM CHLORIDE 0.9% 250ML 230 ML IV SCH (18:00)
[2021-07-04 18:23] VITALS: BP 126/63
[2021-07-04] MEDS ORDERED: FAMOTIDINE 20 MG/2 ML INJ IV SCH (22:00)
[2021-07-04] MEDS ORDERED: SENNOSIDES/DOCUSATE SODIUM 8.6/50 MG TAB FEEDTUBE SCH (22:00)
--- NOTE | 2021-07-06 10:47 | Electrocardiograph Report ---
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
== END 2021-07-04 18:48 | disposition short-term general hospital (02) ==
LOC: ED 14:29
DX: G93.40 Encephalopathy, unspecified (principal); J96.00 Acute respiratory failure, unspecified whether with hypoxia or hypercapnia; R65.10 Systemic inflammatory response syndrome (SIRS) of non-infectious origin without acute organ dysfunction; E87.0 Hyperosmolality and hypernatremia; E87.6 Hypokalemia; I60.9 Nontraumatic subarachnoid hemorrhage, unspecified; G91.1 Obstructive hydrocephalus; I10 Essential (primary) hypertension
CPT/HCPCS: 31500; 70450; 70496; 70498; 71045; 74018; 80053; 80061; 81001; 82140; 82550; 82553; 82728; 82803; 82947; 83615; 84145; 84443; 84484; 85025; 85379; 85610; 85670; 85730; 86140; 87040; 87086; 87205; 93005; 94640; 96365; 96366; 96367; 96375; 96376; 99291; J0696; J1100; J1953; J2150; J3010; J3480; J3490; J7030; J7040; J7050; Q9967; 80320; 94002; 94644; Q0162; G0480